=== PATIENT | female | born 1940 | race Two or more races ===

== ENCOUNTER 2017-08-05 06:27 | Day surgery (SDC) | payer MEDICARE ==
[~2017-08-05] VITALS: Ht 170.2 cm; Wt 86.9 kg
[~2017-08-05 06:27] MED LIST: ACET325 PO; ALBU90OI6; ALBU90OI6 INH; ALBU90OI61 INH; ALLERCLEAR10 MG PO; ALLERGY10 MG PO; ASPI325; ASPI81CH PO; ATOR20; Aspir 8181 MG PO; BCOIRO; BENZ100A PO; CALCIUM 1,0001 EACH; CALCIUM 500 +1 EAC3 PO; CHOL10002 PO; CLOP75; CRANBERRY250 MG PO; CRANBERRY500 M1 PO; CYCL0.05OP; Cough Syru100 MG/5 M PO; DEXILANT PO; DEXILANT60 MG; DEXL60CA3 PO; Doxycycline Hy100 MG PO; EFFIENT PO; FISH1000; FISH1000 PO; FLUSAL1005; FLUSAL2505 IH; FLUSAL2505 INH; FLUT1DIS5 INH; GUAI600T33 PO; HYDR1TAB94 PO; HYDVAL.2TA TOP; LEVFLO500 PO; LORA10ER PO; MAGOXI400 PO; MELA3 PO; METO100ER; METO50ER PO; Melatonin5 M1 PO; NITR.4SL; NITR.4SL SL; OMEP20ER; PANT40 PO; RAMI5; SIMV10 PO; SIMV20 PO; SPIHYD; SPIR25 PO; UBID100 PO; VERA120ERB; VITAMIN D32000 UNI1; Voltaren100 GM TOP; Voltaren100 GM TP; Zofran4 MG PO; [UNRECOGNIZED DRUG - OTHER]; [UNRECOGNIZED DRUG - OTHER]
[2017-08-05] MEDS ORDERED: METF500C PO (07:29)
== END 2017-08-05 08:02 | disposition home or self-care (01) ==
LOC: ORSCSDS 06:27
PROVIDERS: Anesthesiology
PROC: 3E0R33Z Introduction of Anti-inflammatory into Spinal Canal, Percutaneous Approach (ICD-10-PCS; principal; 2017-08-05 07:45)
DX: M51.16 Intervertebral disc disorders with radiculopathy, lumbar region (principal); M48.061 Spinal stenosis, lumbar region without neurogenic claudication; I10 Essential (primary) hypertension; J45.909 Unspecified asthma, uncomplicated; E78.00 Pure hypercholesterolemia, unspecified; I25.10 Atherosclerotic heart disease of native coronary artery without angina pectoris; E11.9 Type 2 diabetes mellitus without complications; Z79.82 Long term (current) use of aspirin; Z79.84 Long term (current) use of oral hypoglycemic drugs; Z79.899 Other long term (current) drug therapy
CPT/HCPCS: J1040

== ENCOUNTER 2017-08-26 15:46 | Inpatient (IN) | payer MEDICARE ==
[~2017-08-26] VITALS: Ht 170.2 cm; Wt 87.1 kg
[~2017-08-26 15:46] MED LIST changes: +METF500C PO
[2017-08-26 16:41] LABS: BASOPHILS ABSOLUTE AUTO 0.06 K/mm3 (0.00-0.23); BASOPHILS PERCENT AUTO 0 % (0-2); EOSINOPHILS ABSOLUTE AUTO 0.04 K/mm3 (0.00-0.68); EOSINOPHILS PERCENT AUTO 0 % (0-6); Hematocrit 44.1 % (33.0-51.0); Hemoglobin 13.7 g/dL (11.5-16.0); IMMATURE GRAN ABSOLUTE AUTO 0.06 K/mm3 (0.00-0.10); IMMATURE GRAN PERCENT AUTO 0 % (0-1); LYMPHOCYTES ABSOLUTE AUTO 1.49 K/mm3 (0.84-5.20); LYMPHOCYTES PERCENT AUTO 11 % (21-46); MONOCYTES ABSOLUTE AUTO 0.91 K/mm3 (0.16-1.47); MONOCYTES PERCENT AUTO 6 % (4-13); Mean Corpuscular HGB 29.5 pg (26.0-34.0); Mean Corpuscular HGB Conc 31.1 g/dL (31.5-36.5); Mean Corpuscular Volume 95 fL (80-100); NEUTROPHILS ABSOLUTE AUTO 11.56 K/mm3 (1.96-9.15); NEUTROPHILS PERCENT AUTO 82 % (41-73); Platelet Count 173 K/mm3 (150-400); RDW Coefficient Variation 13.6 % (11.7-14.2); RDW Standard Deviation 47.8 fL (35.1-46.3); Red Blood Cell Count 4.64 M/mm3 (3.80-5.20); White Blood Cell Count 14.12 K/mm3 (4.00-11.30)
[2017-08-26 16:55] LABS: International Normalized Ratio 1.02; Prothrombin Time Results 10.6 Sec (9.7-11.5)
[2017-08-26 17:02] LABS: Alanine Aminotransfer (ALT/SGP 32 U/L (12-78); Albumin, Blood 3.1 g/dL (3.4-5.0); Albumin/Globulin Ratio 0.7 (0.8-1.8); Alk Phos 118 U/L (50-136); Anion Gap 8 mmol/L (6-16); Aspartate Aminotrans (AST/SGOT 34 U/L (12-37); Bilirubin, Total 0.5 mg/dL (0.1-1.0); Blood Urea Nitrogen 13 mg/dL (8-24); Bun/Creatinine Ratio 15.6 (12.0-20.0); CO2, Blood 28 mmol/L (21-32); Calcium, Blood 9.2 mg/dL (8.5-10.1); Chloride, Blood 102 mmol/L (98-108); Creatinine, Blood 0.84 mg/dL (0.40-1.00); Globulin, Blood 4.4 g/dL (2.2-4.0); Glomerular Filtration Rate >60 (60-); Glucose, Blood 151 mg/dL (70-99); Potassium, Blood 4.3 mmol/L (3.5-5.5); Sodium, Blood 138 mmol/L (136-145); Total Protein, Blood 7.5 g/dL (6.4-8.2); Troponin I 0.155 ng/mL (0.000-0.040)
[2017-08-26 17:30] LABS: Influenza A Negative (NEGATIVE); Influenza B Negative (NEGATIVE)
[2017-08-26 23:03] LABS: Source, Urine Catheter
[2017-08-26 23:07] LABS: Bilirubin, Urine Neg (Neg); Blood, Urine 2+ (Neg); Glucose Qualitative, Urine Neg (Neg); Ketones, Urine 4+ (Neg); Leukocyte Esterase, Urine 1+ (Neg); Nitrite, Urine Pos (Neg); Protein, Urine 2+ (Neg); Urobilinogen, Urine NORM (Normal)
[2017-08-26 23:08] LABS: Appearance, Urine Clear (Clear); Color, Urine Yellow (P-Yellow)
[2017-08-26 23:26] LABS: Bacteria Many /hpf; Red Blood Cells, Urine 0-2 /hpf (0-2); Squamous Epithelial Cells Not Seen /hpf (Few)
[2017-08-27 05:27] LABS: BASOPHILS ABSOLUTE AUTO 0.02 K/mm3 (0.00-0.23); BASOPHILS PERCENT AUTO 0 % (0-2); EOSINOPHILS PERCENT AUTO 0 % (0-6); Hematocrit 38.8 % (33.0-51.0); Hemoglobin 12.2 g/dL (11.5-16.0); IMMATURE GRAN ABSOLUTE AUTO 0.05 K/mm3 (0.00-0.10); IMMATURE GRAN PERCENT AUTO 0 % (0-1); LYMPHOCYTES ABSOLUTE AUTO 0.98 K/mm3 (0.84-5.20); LYMPHOCYTES PERCENT AUTO 7 % (21-46); MONOCYTES ABSOLUTE AUTO 0.33 K/mm3 (0.16-1.47); MONOCYTES PERCENT AUTO 3 % (4-13); Mean Corpuscular HGB 29.4 pg (26.0-34.0); Mean Corpuscular HGB Conc 31.4 g/dL (31.5-36.5); Mean Corpuscular Volume 94 fL (80-100); Mean Platelet Volume 11.9 fL (9.1-12.4); NEUTROPHILS ABSOLUTE AUTO 12.04 K/mm3 (1.96-9.15); NEUTROPHILS PERCENT AUTO 90 % (41-73); Platelet Count 164 K/mm3 (150-400); RDW Coefficient Variation 13.3 % (11.7-14.2); RDW Standard Deviation 45.8 fL (35.1-46.3); Red Blood Cell Count 4.15 M/mm3 (3.80-5.20); White Blood Cell Count 13.42 K/mm3 (4.00-11.30)
[2017-08-27 05:53] LABS: Anion Gap 8 mmol/L (6-16); Blood Urea Nitrogen 19 mg/dL (8-24); Bun/Creatinine Ratio 24.1 (12.0-20.0); CO2, Blood 26 mmol/L (21-32); Calcium, Blood 8.4 mg/dL (8.5-10.1); Chloride, Blood 106 mmol/L (98-108); Creatinine, Blood 0.79 mg/dL (0.40-1.00); Glomerular Filtration Rate >60 (60-); Glucose, Blood 215 mg/dL (70-99); Potassium, Blood 4.2 mmol/L (3.5-5.5); Sodium, Blood 140 mmol/L (136-145)
[2017-08-30 14:32] LABS: Source, Urine Voided
[2017-08-30 14:36] LABS: Bilirubin, Urine Neg (Neg); Blood, Urine Neg (Neg); Glucose Qualitative, Urine Neg (Neg); Ketones, Urine Neg (Neg); Leukocyte Esterase, Urine Neg (Neg); Nitrite, Urine Neg (Neg); Protein, Urine Neg (Neg); Specific Gravity, Urine 1.015 (1.003-1.022); Urobilinogen, Urine NORM (Normal); pH, Urine 6.5 (5.0-8.0)
[2017-08-30 14:56] LABS: Appearance, Urine Clear (Clear); Color, Urine Yellow (P-Yellow)
[2017-09-04] MEDS ORDERED: BENZ100A PO (11:27)
[2017-09-04] MEDS ORDERED: PRED20 PO (11:31)
== END 2017-09-04 12:12 | disposition home or self-care (01) | DRG 177 ==
LOC: ER 15:46 → MEDS 19:09 → ENPENDDIS 09-04 10:00 → MEDS 09-04 12:12
PROVIDERS: Emergency Medicine; Family Medicine; Internal Medicine Gastroenterology
PROC: 0DJ08ZZ Inspection of Upper Intestinal Tract, Via Natural or Artificial Opening Endoscopic (ICD-10-PCS; principal; 2017-09-03 12:00)
DX: J69.0 Pneumonitis due to inhalation of food and vomit (principal); J96.01 Acute respiratory failure with hypoxia; E11.65 Type 2 diabetes mellitus with hyperglycemia; K22.0 Achalasia of cardia; K22.5 Diverticulum of esophagus, acquired; G47.33 Obstructive sleep apnea (adult) (pediatric); I10 Essential (primary) hypertension; I25.10 Atherosclerotic heart disease of native coronary artery without angina pectoris; I25.2 Old myocardial infarction; J30.9 Allergic rhinitis, unspecified; K21.9 Gastro-esophageal reflux disease without esophagitis; K58.9 Irritable bowel syndrome, unspecified; Z79.52 Long term (current) use of systemic steroids; Z79.82 Long term (current) use of aspirin; Z99.81 Dependence on supplemental oxygen; Z79.84 Long term (current) use of oral hypoglycemic drugs
CPT/HCPCS: 36415; 71045; 71046; 74230; 80048; 80053; 81001; 81003; 82947; 83605; 84484; 85025; 85610; 85730; 87040; 87077; 87086; 87186; 87804; 92610; 92611; 93005; 93010; 94640; 94667; 94760; 96365; 96366; 99285; G8996; G8997; G8998; J0295; J0456; J2543; J7030; J7050; J7120

== ENCOUNTER 2017-09-16 15:58 | Inpatient (IN) | payer MEDICARE ==
[~2017-09-16] VITALS: Ht 170.2 cm; Wt 77.8 kg
[~2017-09-16 15:58] MED LIST changes: +PRED20 PO
[2017-09-16 16:39] LABS: BASOPHILS ABSOLUTE AUTO 0.02 K/mm3 (0.00-0.23); BASOPHILS PERCENT AUTO 0 % (0-2); EOSINOPHILS ABSOLUTE AUTO 0.22 K/mm3 (0.00-0.68); EOSINOPHILS PERCENT AUTO 2 % (0-6); Hematocrit 39.2 % (33.0-51.0); Hemoglobin 12.1 g/dL (11.5-16.0); IMMATURE GRAN ABSOLUTE AUTO 0.04 K/mm3 (0.00-0.10); IMMATURE GRAN PERCENT AUTO 0 % (0-1); LYMPHOCYTES ABSOLUTE AUTO 1.35 K/mm3 (0.84-5.20); LYMPHOCYTES PERCENT AUTO 15 % (21-46); MONOCYTES ABSOLUTE AUTO 0.56 K/mm3 (0.16-1.47); MONOCYTES PERCENT AUTO 6 % (4-13); Mean Corpuscular HGB 29.1 pg (26.0-34.0); Mean Corpuscular HGB Conc 30.9 g/dL (31.5-36.5); Mean Corpuscular Volume 94 fL (80-100); Mean Platelet Volume 11.7 fL (9.1-12.4); NEUTROPHILS ABSOLUTE AUTO 6.96 K/mm3 (1.96-9.15); NEUTROPHILS PERCENT AUTO 76 % (41-73); Platelet Count 151 K/mm3 (150-400); RDW Standard Deviation 48.6 fL (35.1-46.3); Red Blood Cell Count 4.16 M/mm3 (3.80-5.20); White Blood Cell Count 9.15 K/mm3 (4.00-11.30)
[2017-09-16 17:08] LABS: Troponin I <0.015 ng/mL (0.000-0.040)
[2017-09-16 17:13] LABS: Alanine Aminotransfer (ALT/SGP 31 U/L (12-78); Albumin, Blood 2.8 g/dL (3.4-5.0); Albumin/Globulin Ratio 0.8 (0.8-1.8); Alk Phos 81 U/L (50-136); Anion Gap 6 mmol/L (6-16); Aspartate Aminotrans (AST/SGOT 11 U/L (12-37); Bilirubin, Total 0.6 mg/dL (0.1-1.0); Blood Urea Nitrogen 23 mg/dL (8-24); Bun/Creatinine Ratio 24.3 (12.0-20.0); CO2, Blood 29 mmol/L (21-32); Calcium, Blood 9.1 mg/dL (8.5-10.1); Chloride, Blood 105 mmol/L (98-108); Creatinine, Blood 0.95 mg/dL (0.40-1.00); Globulin, Blood 3.5 g/dL (2.2-4.0); Glomerular Filtration Rate >60 (60-); Glucose, Blood 207 mg/dL (70-99); Magnesium, Blood 1.9 mg/dL (1.6-2.4); Potassium, Blood 4.1 mmol/L (3.5-5.5); Sodium, Blood 140 mmol/L (136-145); Total Protein, Blood 6.3 g/dL (6.4-8.2)
[2017-09-16] MEDS ORDERED: DEXL60CA3 (18:08)
[2017-09-16] MEDS ORDERED: MELATONIN5 M2 PO (18:14)
[2017-09-16 20:13] LABS: Source, Urine Voided
[2017-09-16 20:16] LABS: Appearance, Urine Clear (Clear); Bilirubin, Urine Neg (Neg); Blood, Urine 2+ (Neg); Color, Urine Yellow (P-Yellow); Glucose Qualitative, Urine Neg (Neg); Ketones, Urine 2+ (Neg); Leukocyte Esterase, Urine 1+ (Neg); Nitrite, Urine Neg (Neg); Protein, Urine 1+ (Neg); Urobilinogen, Urine NORM (Normal)
[2017-09-16 20:24] LABS: Bacteria Many /hpf; Red Blood Cells, Urine 0-2 /hpf (0-2); Squamous Epithelial Cells Rare /hpf (Few)
[2017-09-18 05:21] LABS: Anion Gap 8 mmol/L (6-16); Blood Urea Nitrogen 15 mg/dL (8-24); CO2, Blood 26 mmol/L (21-32); Chloride, Blood 107 mmol/L (98-108); Creatinine, Blood 0.79 mg/dL (0.40-1.00); Glomerular Filtration Rate >60 (60-); Glucose, Blood 253 mg/dL (70-99); Phosphorus, Blood 2.6 mg/dL (2.5-4.9); Potassium, Blood 4.3 mmol/L (3.5-5.5); Sodium, Blood 141 mmol/L (136-145); Triglycerides 200 mg/dL (30-160)
[2017-09-19 09:17] LABS: Triglycerides 320 mg/dL (30-160)
[2017-09-19 15:32] LABS: Source, Urine Voided
[2017-09-19 15:38] LABS: Appearance, Urine Clear (Clear); Bilirubin, Urine Neg (Neg); Blood, Urine Neg (Neg); Color, Urine Yellow (P-Yellow); Glucose Qualitative, Urine 2+ (Neg); Ketones, Urine Neg (Neg); Leukocyte Esterase, Urine Neg (Neg); Nitrite, Urine Neg (Neg); Protein, Urine Neg (Neg); Urobilinogen, Urine NORM (Normal); pH, Urine 6.5 (5.0-8.0)
[2017-09-20 04:49] LABS: Anion Gap 7 mmol/L (6-16); Blood Urea Nitrogen 19 mg/dL (8-24); CO2, Blood 27 mmol/L (21-32); Calcium, Blood 9.3 mg/dL (8.5-10.1); Chloride, Blood 106 mmol/L (98-108); Creatinine, Blood 0.79 mg/dL (0.40-1.00); Glomerular Filtration Rate >60 (60-); Glucose, Blood 210 mg/dL (70-99); Potassium, Blood 4.3 mmol/L (3.5-5.5); Sodium, Blood 140 mmol/L (136-145)
== END 2017-09-20 11:55 | disposition home or self-care (01) | DRG 690 ==
LOC: ER 15:58 → MEDS 15:59 → ENPENDDIS 09-20 10:40 → MEDS 09-20 11:55
PROVIDERS: Family Medicine; Physician Assistant
DX: N39.0 Urinary tract infection, site not specified (principal); E86.0 Dehydration; J44.9 Chronic obstructive pulmonary disease, unspecified; K22.5 Diverticulum of esophagus, acquired; I10 Essential (primary) hypertension; I25.10 Atherosclerotic heart disease of native coronary artery without angina pectoris; I25.2 Old myocardial infarction; K58.9 Irritable bowel syndrome, unspecified; K21.9 Gastro-esophageal reflux disease without esophagitis; E78.5 Hyperlipidemia, unspecified; R73.9 Hyperglycemia, unspecified
CPT/HCPCS: 36415; 71046; 80048; 80053; 81001; 81003; 82947; 83735; 83880; 84100; 84443; 84478; 84484; 85025; 87077; 87086; 87186; 93005; 93010; 94640; 94760; 96360; 96361; 97110; 97116; 97162; 97530; 99285; G0378; G8978; G8979; J1815; J1956; J7030

== ENCOUNTER 2018-07-09 06:37 | Emergency (ER) | payer MEDICARE ==
[~2018-07-09] VITALS: Ht 170.2 cm; Wt 85.7 kg
[~2018-07-09 06:37] MED LIST changes: +DEXL60CA3; +MELATONIN5 M2 PO
[2018-07-09] MEDS ORDERED: HYDR1TAB94 (07:11)
[2018-07-09] MEDS ORDERED: BASAGLAR K100 UNIT/1 (07:11)
[2018-07-09 07:40] LABS: Source, Urine Clean Catch
[2018-07-09 07:45] LABS: Bilirubin, Urine Neg (Neg); Blood, Urine 1+ (Neg); Glucose Qualitative, Urine Neg (Neg); Ketones, Urine Neg (Neg); Leukocyte Esterase, Urine 1+ (Neg); Nitrite, Urine Neg (Neg); Protein, Urine Neg (Neg); Urobilinogen, Urine NORM (Normal); pH, Urine 6.5 (5.0-8.0)
[2018-07-09 08:03] LABS: Appearance, Urine Clear (Clear); Color, Urine Yellow (P-Yellow)
[2018-07-09 08:04] LABS: Alanine Aminotransfer (ALT/SGP 23 U/L (12-78); Albumin/Globulin Ratio 0.8 (0.8-1.8); Alk Phos 103 U/L (50-136); Anion Gap 5 mmol/L (6-16); Aspartate Aminotrans (AST/SGOT 20 U/L (12-37); Bilirubin, Total 0.2 mg/dL (0.1-1.0); Blood Urea Nitrogen 21 mg/dL (8-24); CO2, Blood 29 mmol/L (21-32); Calcium, Blood 9.3 mg/dL (8.5-10.1); Chloride, Blood 110 mmol/L (98-108); Creatinine, Blood 0.95 mg/dL (0.40-1.00); Glomerular Filtration Rate >60 (60-); Glucose, Blood 95 mg/dL (70-99); Potassium, Blood 4.6 mmol/L (3.5-5.5); Sodium, Blood 144 mmol/L (136-145)
[2018-07-09 08:10] LABS: Bacteria Many /hpf; Red Blood Cells, Urine 0-2 /hpf (0-2); Squamous Epithelial Cells Many /hpf (Few); White Blood Cells, Urine 0-2 /hpf (0-5)
[2018-07-09 08:27] LABS: BASOPHILS ABSOLUTE AUTO 0.07 K/mm3 (0.00-0.23); BASOPHILS PERCENT AUTO 1 % (0-2); EOSINOPHILS ABSOLUTE AUTO 0.24 K/mm3 (0.00-0.68); EOSINOPHILS PERCENT AUTO 2 % (0-6); Hematocrit 43.6 % (33.0-51.0); Hemoglobin 13.3 g/dL (11.5-16.0); IMMATURE GRAN ABSOLUTE AUTO 0.04 K/mm3 (0.00-0.10); IMMATURE GRAN PERCENT AUTO 0 % (0-1); LYMPHOCYTES ABSOLUTE AUTO 1.69 K/mm3 (0.84-5.20); LYMPHOCYTES PERCENT AUTO 15 % (21-46); MONOCYTES ABSOLUTE AUTO 0.92 K/mm3 (0.16-1.47); MONOCYTES PERCENT AUTO 8 % (4-13); Mean Corpuscular HGB 28.1 pg (26.0-34.0); Mean Corpuscular HGB Conc 30.5 g/dL (31.5-36.5); Mean Corpuscular Volume 92 fL (80-100); Mean Platelet Volume 11.5 fL (9.1-12.4); NEUTROPHILS PERCENT AUTO 74 % (41-73); Platelet Count 197 K/mm3 (150-400); RDW Coefficient Variation 13.9 % (11.7-14.2); RDW Standard Deviation 47.3 fL (35.1-46.3); Red Blood Cell Count 4.74 M/mm3 (3.80-5.20); White Blood Cell Count 11.36 K/mm3 (4.00-11.30)
[2018-07-09] MEDS ORDERED: HYDROCODONE-ACET5 ML PO (09:22)
[2018-07-09] MEDS ORDERED: Augmentin600 MG/5 M PO (09:22)
== END 2018-07-09 09:35 | disposition home or self-care (01) ==
LOC: ER 06:37
PROVIDERS: Physician Assistant
DX: K57.32 Diverticulitis of large intestine without perforation or abscess without bleeding (principal); Z88.1 Allergy status to other antibiotic agents; Z79.899 Other long term (current) drug therapy; Z79.891 Long term (current) use of opiate analgesic; Z79.4 Long term (current) use of insulin; I10 Essential (primary) hypertension; J45.909 Unspecified asthma, uncomplicated; E11.9 Type 2 diabetes mellitus without complications; E78.5 Hyperlipidemia, unspecified; Z90.49 Acquired absence of other specified parts of digestive tract
CPT/HCPCS: 36415; 74177; 80053; 81001; 83690; 85025; 99284-25; J7120; Q9967

== ENCOUNTER → 2018-08-11 | Outpatient (CLI) | payer MEDICARE ==
[~2018-08-11] MED LIST changes: +Augmentin600 MG/5 M PO; +BASAGLAR K100 UNIT/1; +HYDR1TAB94; +HYDROCODONE-ACET5 ML PO
[2018-08-11 18:32] LABS: Microalb/Creat Ratio UR, Rand Unable to Calculate mg/g (0.000-30.000); Microalbumin, Random Urine <5.000 mg/L (0.000-20.000)
== END | disposition home or self-care (01) ==
LOC: LAB 15:55 → LAB SHORT 15:55 → LAB FUT 08-05 17:50
PROVIDERS: Family Medicine
DX: E11.9 Type 2 diabetes mellitus without complications (principal)
CPT/HCPCS: 82043; 82570

== ENCOUNTER 2018-12-28 13:40 | Emergency (ER) | payer MEDICARE ==
[~2018-12-28] VITALS: Ht 170.2 cm; Wt 86.2 kg
[2018-12-28 14:17] LABS: BASOPHILS ABSOLUTE AUTO 0.04 K/mm3 (0.00-0.23); BASOPHILS PERCENT AUTO 0 % (0-2); EOSINOPHILS ABSOLUTE AUTO 0.02 K/mm3 (0.00-0.68); EOSINOPHILS PERCENT AUTO 0 % (0-6); Hemoglobin 12.7 g/dL (11.5-16.0); IMMATURE GRAN ABSOLUTE AUTO 0.04 K/mm3 (0.00-0.10); IMMATURE GRAN PERCENT AUTO 0 % (0-1); LYMPHOCYTES ABSOLUTE AUTO 1.14 K/mm3 (0.84-5.20); LYMPHOCYTES PERCENT AUTO 11 % (21-46); MONOCYTES ABSOLUTE AUTO 1.04 K/mm3 (0.16-1.47); MONOCYTES PERCENT AUTO 10 % (4-13); Mean Corpuscular HGB 28.9 pg (26.0-34.0); Mean Corpuscular HGB Conc 31.8 g/dL (31.5-36.5); Mean Corpuscular Volume 91 fL (80-100); NEUTROPHILS ABSOLUTE AUTO 8.01 K/mm3 (1.96-9.15); NEUTROPHILS PERCENT AUTO 78 % (41-73); Platelet Count 199 K/mm3 (150-400); RDW Coefficient Variation 13.4 % (11.7-14.2); RDW Standard Deviation 45.5 fL (35.1-46.3); Red Blood Cell Count 4.39 M/mm3 (3.80-5.20); White Blood Cell Count 10.29 K/mm3 (4.00-11.30)
[2018-12-28 14:40] LABS: Alanine Aminotransfer (ALT/SGP 28 U/L (12-78); Albumin/Globulin Ratio 0.7 (0.8-1.8); Alk Phos 107 U/L (50-136); Anion Gap 8 mmol/L (6-16); Aspartate Aminotrans (AST/SGOT 29 U/L (12-37); Bilirubin, Total 0.3 mg/dL (0.1-1.0); Blood Urea Nitrogen 17 mg/dL (8-24); Bun/Creatinine Ratio 18.3 (12.0-20.0); CO2, Blood 24 mmol/L (21-32); Calcium, Blood 9.1 mg/dL (8.5-10.1); Chloride, Blood 104 mmol/L (98-108); Creatinine, Blood 0.93 mg/dL (0.40-1.00); Globulin, Blood 4.2 g/dL (2.2-4.0); Glomerular Filtration Rate >60 (60-); Glucose, Blood 225 mg/dL (70-99); Potassium, Blood 3.8 mmol/L (3.5-5.5); Sodium, Blood 136 mmol/L (136-145); Total Protein, Blood 7.2 g/dL (6.4-8.2); Troponin I <0.015 ng/mL (0.000-0.040)
[2018-12-28] MEDS ORDERED: Zithromax200 MG/5 M PO (16:22)
== END 2018-12-28 17:08 | disposition home or self-care (01) ==
LOC: ER 13:40
PROVIDERS: Physician Assistant
DX: J18.9 Pneumonia, unspecified organism (principal); I25.10 Atherosclerotic heart disease of native coronary artery without angina pectoris; I10 Essential (primary) hypertension; E11.9 Type 2 diabetes mellitus without complications; E78.5 Hyperlipidemia, unspecified; Z88.1 Allergy status to other antibiotic agents; Z79.82 Long term (current) use of aspirin; Z79.899 Other long term (current) drug therapy
CPT/HCPCS: 36415; 71046; 80053; 83880; 84484; 85025; 93005; 93010; 96365; 99283-25; J0696

== ENCOUNTER 2018-12-30 15:20 | Emergency (ER) | payer MEDICARE ==
[~2018-12-30] VITALS: Ht 170.2 cm; Wt 86.2 kg
[~2018-12-30 15:20] MED LIST changes: +Zithromax200 MG/5 M PO
[2018-12-30 16:36] LABS: BASOPHILS ABSOLUTE AUTO 0.02 K/mm3 (0.00-0.23); BASOPHILS PERCENT AUTO 0 % (0-2); EOSINOPHILS ABSOLUTE AUTO 0.13 K/mm3 (0.00-0.68); EOSINOPHILS PERCENT AUTO 2 % (0-6); Hematocrit 40.3 % (33.0-51.0); Hemoglobin 12.5 g/dL (11.5-16.0); IMMATURE GRAN ABSOLUTE AUTO 0.03 K/mm3 (0.00-0.10); IMMATURE GRAN PERCENT AUTO 0 % (0-1); LYMPHOCYTES ABSOLUTE AUTO 1.44 K/mm3 (0.84-5.20); LYMPHOCYTES PERCENT AUTO 19 % (21-46); MONOCYTES ABSOLUTE AUTO 0.69 K/mm3 (0.16-1.47); MONOCYTES PERCENT AUTO 9 % (4-13); Mean Corpuscular HGB 28.7 pg (26.0-34.0); Mean Corpuscular Volume 93 fL (80-100); Mean Platelet Volume 11.1 fL (9.1-12.4); NEUTROPHILS ABSOLUTE AUTO 5.23 K/mm3 (1.96-9.15); NEUTROPHILS PERCENT AUTO 69 % (41-73); Platelet Count 237 K/mm3 (150-400); RDW Coefficient Variation 13.2 % (11.7-14.2); RDW Standard Deviation 45.1 fL (35.1-46.3); Red Blood Cell Count 4.35 M/mm3 (3.80-5.20); White Blood Cell Count 7.54 K/mm3 (4.00-11.30)
[2018-12-30 16:57] LABS: Alanine Aminotransfer (ALT/SGP 26 U/L (12-78); Albumin, Blood 2.8 g/dL (3.4-5.0); Albumin/Globulin Ratio 0.6 (0.8-1.8); Alk Phos 96 U/L (50-136); Anion Gap 7 mmol/L (6-16); Aspartate Aminotrans (AST/SGOT 23 U/L (12-37); Bilirubin, Total 0.3 mg/dL (0.1-1.0); Blood Urea Nitrogen 18 mg/dL (8-24); Bun/Creatinine Ratio 20.2 (12.0-20.0); CO2, Blood 28 mmol/L (21-32); Calcium, Blood 9.2 mg/dL (8.5-10.1); Chloride, Blood 105 mmol/L (98-108); Creatinine, Blood 0.89 mg/dL (0.40-1.00); Globulin, Blood 4.4 g/dL (2.2-4.0); Glomerular Filtration Rate >60 (60-); Glucose, Blood 105 mg/dL (70-99); Sodium, Blood 140 mmol/L (136-145); Total Protein, Blood 7.2 g/dL (6.4-8.2); Troponin I <0.015 ng/mL (0.000-0.040)
[2018-12-30] MEDS ORDERED: Augmentin600 MG/5 M PO (17:46)
== END 2018-12-30 18:26 | disposition home or self-care (01) ==
LOC: ER 15:20
PROVIDERS: Emergency Medicine
DX: J15.9 Unspecified bacterial pneumonia (principal); I25.2 Old myocardial infarction; Z79.82 Long term (current) use of aspirin; Z79.899 Other long term (current) drug therapy
CPT/HCPCS: 36415; 71046; 80053; 83880; 84484; 85025; 93005; 93010; 99285-25

== ENCOUNTER 2019-06-18 16:12 | Inpatient (IN) | payer MEDICARE ==
[~2019-06-18] VITALS: Ht 170.2 cm; Wt 94.0 kg
[~2019-06-18 16:12] MED LIST changes: -Aspir 8181 MG PO; +Aspir 8181 MG PT; -DEXL60CA3; +DEXL60CA3 PT; +MELATONIN5 M1 PT; -MELATONIN5 M2 PO; +METO25 PO; -SIMV10 PO; +SIMV10 PT
[2019-06-18] MEDS ORDERED: FLUT1DIS5 INH ×2 (16:28→21:25)
[2019-06-18] MEDS ORDERED: Lomotil Tablet1 EACH PO (16:30)
[2019-06-18] MEDS ORDERED: BASAGLAR K100 UNIT/2 SC (16:30)
[2019-06-18 17:09] LABS: Albumin, Blood 2.8 g/dL (3.4-5.0); Albumin/Globulin Ratio 0.8 (0.8-1.8); Bilirubin, Total 0.7 mg/dL (0.1-1.0); Bun/Creatinine Ratio 13.3 (12.0-20.0); Calcium, Blood 9.1 mg/dL (8.5-10.1); Creatinine, Blood 1.5 mg/dL (0.40-1.00); Globulin, Blood 3.6 g/dL (2.2-4.0); Potassium, Blood 4.4 mmol/L (3.5-5.5); Total Protein, Blood 6.4 g/dL (6.4-8.2); Troponin I 0.401 ng/mL (0.000-0.040)
[2019-06-18 17:49] LABS: PCO2 Arterial 32.6 mmHg (35-45); PO2 Arterial 58.9 mmHg (80-100); pH Blood Arterial 7.44 (7.35-7.45)
[2019-06-18 18:03] LABS: Hematocrit 47.4 % (33.0-51.0); Mean Corpuscular HGB 29.2 pg (26.0-34.0); Mean Corpuscular HGB Conc 31.6 g/dL (31.5-36.5); Mean Corpuscular Volume 92 fL (80-100); Mean Platelet Volume 11.8 fL (9.1-12.4); Platelet Count 236 K/mm3 (150-400); RDW Coefficient Variation 13.6 % (11.7-14.2); RDW Standard Deviation 46.4 fL (35.1-46.3); Red Blood Cell Count 5.14 M/mm3 (3.80-5.20); White Blood Cell Count 11.64 K/mm3 (4.00-11.30)
[2019-06-18 18:20] LABS: BAND PERCENT MAN 46 % (0-8); BASOPHILS PERCENT MAN 0 % (0-2); EOSINOPHILS PERCENT MAN 0 % (0-6); LYMPHOCYTES % ATYPICAL MANUAL 4 % (0-0); LYMPHOCYTES ABSOLUTE MAN 1.86 K/mm3 (0.84-5.20); LYMPHOCYTES PERCENT MAN 12 % (21-46); METAMYELOCYTE ABSOLUTE MAN 1.04 K/mm3 (0.00-0.00); METAMYELOCYTE PERCENT MAN 9 % (0-0); MONOCYTES ABSOLUTE MAN 0.58 K/mm3 (0.16-1.47); MONOCYTES PERCENT MAN 5 % (4-13); NEUTROPHILS ABSOLUTE MAN 8.14 K/mm3 (1.96-9.15); SEG NEUTROPHILS PERCENT MAN 24 % (41-73); TOTAL CELLS COUNTED 100
[2019-06-18] MEDS ORDERED: Loratadine10 MG PT (18:37)
[2019-06-18] MEDS ORDERED: SPIRIVA RESPIMAT4 GM INH (18:38)
--- NOTE | 2019-06-19 04:51 | NUR ---
Admit/Shift Summary: Patient arrived to the [facility] at 205406/18/19. She has a productive cough, but sputum sample was contaminated with oral epithelial cells, and sputum appeared white. Crackles heard on auscultation to right lower and mid lung feilds. She denies chest pain, and we are monitoring troponins. Cough and deep breathing encouraged. VSS, slightly hypotensive so metoprolol was held. Re-ordered sputum collection.
[2019-06-19 05:49] LABS: Hematocrit 40.7 % (33.0-51.0); Hemoglobin 12.8 g/dL (11.5-16.0); Mean Corpuscular HGB 28.6 pg (26.0-34.0); Mean Corpuscular HGB Conc 31.4 g/dL (31.5-36.5); Mean Corpuscular Volume 91 fL (80-100); Mean Platelet Volume 12.4 fL (9.1-12.4); Platelet Count 200 K/mm3 (150-400); RDW Coefficient Variation 13.8 % (11.7-14.2); RDW Standard Deviation 46.5 fL (35.1-46.3); Red Blood Cell Count 4.47 M/mm3 (3.80-5.20)
[2019-06-19 06:02] LABS: Bun/Creatinine Ratio 18.7 (12.0-20.0); Calcium, Blood 8.3 mg/dL (8.5-10.1); Creatinine, Blood 1.5 mg/dL (0.40-1.00); Potassium, Blood 4.4 mmol/L (3.5-5.5)
[2019-06-19 06:08] LABS: Troponin I 1.23 ng/mL (0.000-0.040)
[2019-06-19 06:21] LABS: BAND PERCENT MAN 39 % (0-8); BASOPHILS ABSOLUTE MAN 0.16 K/mm3 (0.00-0.23); BASOPHILS PERCENT MAN 1 % (0-2); EOSINOPHILS PERCENT MAN 0 % (0-6); LYMPHOCYTES % ATYPICAL MANUAL 2 % (0-0); LYMPHOCYTES ABSOLUTE MAN 2.28 K/mm3 (0.84-5.20); LYMPHOCYTES PERCENT MAN 12 % (21-46); MONOCYTES ABSOLUTE MAN 0.65 K/mm3 (0.16-1.47); MONOCYTES PERCENT MAN 4 % (4-13); SEG NEUTROPHILS PERCENT MAN 42 % (41-73); TOTAL CELLS COUNTED 100
--- NOTE | 2019-06-19 09:41 | NUR ---
eCHOCARDIOGRAM COMPLETED.
--- NOTE | 2019-06-19 12:38 | NUR ---
TRANSFER: PT TO ROOM 361 AT THIS TIME. ASSUMED CARE AT THIS TIME. PT UP TO CHAIR TO EAT LUNCH. PT ON 2L O2. SOB WITH ACTIVITY. DENIES NEEDS. WILL CONT TO MONITOR AND TREAT.
--- NOTE | 2019-06-19 13:12 | NUR ---
SPEECH THERAPY: ST IN TO SEE PATIENT FOR SWALLOW EVAL. NEW ORDERS NOTED. PLAN FOR BARIUM SWALLOW IN AM.
[2019-06-19 14:15] LABS: Source, Urine Clean Catch
[2019-06-19 14:21] LABS: Bilirubin, Urine Neg (Neg); Blood, Urine 1+ (Neg); Glucose Qualitative, Urine Neg (Neg); Ketones, Urine 1+ (Neg); Leukocyte Esterase, Urine 1+ (Neg); Nitrite, Urine Neg (Neg); Protein, Urine 2+ (Neg); Urobilinogen, Urine NORM (Normal)
[2019-06-19 14:28] LABS: Appearance, Urine Clear (Clear); Color, Urine Yellow (P-Yellow)
[2019-06-19 14:29] LABS: Bacteria Mod /hpf; Squamous Epithelial Cells Few /hpf (Few)
--- NOTE | 2019-06-19 17:43 | NUR ---
PT HAS BEEN STABLE THIS SHIFT. PT TROPONINS TRENDING DOWN. REMAINS SR ON TELE. NO COMPLAINTS OF CP. UA AND SPUTUM CULTURES PENDING. CONT IV ABX. CONT IV FLUIDS ORDERED. PT ON NECTAR THISCK LIQUIDS, PUREE DIET. BLOOD SUGARS NOT NEEDING COVERAGE. BARIUM SWALLOW AND EKG SCHEDULED FOR AM. PT MIN ASSIST TO BATHROOM. REMAINS ON 3L O2. SOB WITH ACTIVITY. OCCASIONAL COUGH. USES CALL LIGHT APPROPRIATELY NEEDED.
--- NOTE | 2019-06-20 04:13 | NUR ---
SHIFT SUMMARY- NO ACUTE CHANGES OVERNIGHT. PT. HAS DENIED ANY C/O PAIN OR DISCOMFORT. PT. HAS OCCASIONAL PRODUCTIVE COUGH, MEDICATED WITH ROBITUSSIN PER PT. REQUEST. SLEPT WELL DURING THE NIGHT, NO APPARENT DISTRESS NOTED. PT. SCHEDULED FOR BARIUM SWALLOW THIS AM. IV FLUIDS RUNNING. CALL LIGHT WITHIN REACH AND SIDE RAILS UP X2. WILL CONT TO MONITOR.
[2019-06-20 05:01] LABS: Mean Corpuscular HGB 29.3 pg (26.0-34.0); Mean Corpuscular HGB Conc 31.4 g/dL (31.5-36.5); Mean Corpuscular Volume 93 fL (80-100); Mean Platelet Volume 11.9 fL (9.1-12.4); Platelet Count 155 K/mm3 (150-400); RDW Standard Deviation 47.7 fL (35.1-46.3); Red Blood Cell Count 3.75 M/mm3 (3.80-5.20); White Blood Cell Count 12.49 K/mm3 (4.00-11.30)
[2019-06-20 05:20] LABS: Bun/Creatinine Ratio 19.3 (12.0-20.0); Calcium, Blood 8.8 mg/dL (8.5-10.1); Creatinine, Blood 1.14 mg/dL (0.40-1.00); Magnesium, Blood 1.7 mg/dL (1.6-2.4); Potassium, Blood 3.7 mmol/L (3.5-5.5)
--- NOTE | 2019-06-20 16:30 | NUR ---
LOW CBG PT WITH CBG OF 58 AND SHE IS STRICT NPO. T/C TO DR DORADO, IVF CHANGE FROM NS TO D5 1/2 NS AT 75. WILL MONITOR
--- NOTE | 2019-06-20 18:15 | NUR ---
PT IV LEAKING AND REMOVED. CBG RECHECKED, RESULT OF 49, PT ASYMPTOMATIC. NEW IV ATTEMPTED BY JORGE NORMAN AND RICH NORMAN. SUCCESSFUL IV TO LFA BY LAVERNE NORMAN. 1/2 AMP D50 IV PUSH GIVEN PER ORDERS. IVF RESTARTED, DR DORADO NOTIFIED, NO NEW ORDERS AT THIS TIME
--- NOTE | 2019-06-20 18:53 | NUR ---
PT NO STRICT NPO, FAILED SWALLOW EVAL, PEG TUBE RECOMMENDED, SHE DID SAY THAT SHE WANTS DR WONG SHE IS FAMILIAR WITH HIM. CLOSE MONITORING OF BLOOD SUGAR IS NEEDED WITH NPO STATUS, D5 1/2 NS AT 75 RUNNING, WILL CONTINUE TO MONITOR AND REPORT TO ONCOMING RN
--- NOTE | 2019-06-21 04:15 | NUR ---
SHIFT SUMMARY- PT. HAD A RESTFUL NIGHT. NO APPARENT DISTRESS NOTED. PT. NPO DUE TO FAILED SWALLOW EVAL. BS 84 LAST NIGHT, D5-1/2NS INFUSING PER ORDER. PT. DENIED ANY NEEDS T/O THE NIGHT. O2 IN PLACE AT 2L. PT. IS A SBA W/WALKER TO THE BATHROOM, CALLS APPROPRIATELY. PLAN FOR POSS PEG TUBE PLACEMENT. NO ACUTE CHANGES TO PT. CONDITION. CALL LIGHT WITHIN REACH, SIDE RAILS UP X2, AND BED IN LOW POSITION. WILL CONT TO MONITOR.
[2019-06-21 04:47] LABS: BASOPHILS ABSOLUTE AUTO 0.05 K/mm3 (0.00-0.23); BASOPHILS PERCENT AUTO 1 % (0-2); EOSINOPHILS ABSOLUTE AUTO 0.38 K/mm3 (0.00-0.68); EOSINOPHILS PERCENT AUTO 4 % (0-6); Hematocrit 34.8 % (33.0-51.0); Hemoglobin 10.8 g/dL (11.5-16.0); IMMATURE GRAN ABSOLUTE AUTO 0.08 K/mm3 (0.00-0.10); IMMATURE GRAN PERCENT AUTO 1 % (0-1); LYMPHOCYTES ABSOLUTE AUTO 1.34 K/mm3 (0.84-5.20); LYMPHOCYTES PERCENT AUTO 14 % (21-46); MONOCYTES ABSOLUTE AUTO 0.49 K/mm3 (0.16-1.47); MONOCYTES PERCENT AUTO 5 % (4-13); Mean Corpuscular HGB 29.3 pg (26.0-34.0); Mean Corpuscular Volume 95 fL (80-100); Mean Platelet Volume 11.2 fL (9.1-12.4); NEUTROPHILS ABSOLUTE AUTO 7.39 K/mm3 (1.96-9.15); NEUTROPHILS PERCENT AUTO 76 % (41-73); Platelet Count 166 K/mm3 (150-400); RDW Standard Deviation 48.6 fL (35.1-46.3); Red Blood Cell Count 3.68 M/mm3 (3.80-5.20); White Blood Cell Count 9.73 K/mm3 (4.00-11.30)
[2019-06-21 05:08] LABS: Alanine Aminotransfer (ALT/SGP 20 U/L (12-78); Albumin, Blood 2.3 g/dL (3.4-5.0); Albumin/Globulin Ratio 0.6 (0.8-1.8); Alk Phos 77 U/L (50-136); Anion Gap 4 mmol/L (6-16); Aspartate Aminotrans (AST/SGOT 17 U/L (12-37); Bilirubin, Total 0.4 mg/dL (0.1-1.0); Blood Urea Nitrogen 13 mg/dL (8-24); Bun/Creatinine Ratio 13.8 (12.0-20.0); CO2, Blood 25 mmol/L (21-32); Calcium, Blood 8.7 mg/dL (8.5-10.1); Chloride, Blood 112 mmol/L (98-108); Creatinine, Blood 0.95 mg/dL (0.40-1.00); Globulin, Blood 3.6 g/dL (2.2-4.0); Glomerular Filtration Rate >60 (60-); Glucose, Blood 92 mg/dL (70-99); Potassium, Blood 3.6 mmol/L (3.5-5.5); Sodium, Blood 141 mmol/L (136-145); Total Protein, Blood 5.9 g/dL (6.4-8.2)
[2019-06-21 10:56] LABS: Percent Saturation 14.9 % (15.0-50.0)
--- NOTE | 2019-06-21 10:59 | NUR ---
CALL FROM LAB AT 1039 PT'S URINE IN POSITIVE OF ESBL. PT PUT ON CONTACT PRECAUTIONS.
--- NOTE | 2019-06-21 11:17 | NUR ---
DR LASSITER WAS CONSULTED TO DAY ON PT. DR SRAVANI IRAHETA RETURNED CALL AT 1118. STATED HE DOES NOT DO PEG TUBES, BUT WOULD CONSULT GENERAL SURGERY ON THIS MATTER.
--- NOTE | 2019-06-21 17:52 | NUR ---
PT AOX4 AND COOPERATIVE OF CARE. PT IS A ONE PERSON ASSIST WITH WALKER TO HELP WITH HER POLE. PT CALLS APPROPRIATELY. DENIES PAIN AT THIS TIME. STILL NO NEW ON WHEN PEG TUBE CAN BE PLACED.
--- NOTE | 2019-06-21 19:30 | NUR ---
ASSUMED CARE OF THE PATIENT. PATIENT SITTING UP IN CHAIR, WATCHING TV. DENIES ANY NEEDS AT THIS TIME. ENCOURAGED TO ELEVATE FEET DUE TO EDEMA STATES SHE CAN NOT FIND A COMFORTABLE POSITION SO SHE IS SITTING UP. WILL BE LAYING DOWN WHEN SHE IS READY FOR BED. ASSESSMENT COMPLETED PLEASE SEE CHART. CALL LIGHT IN REACH.
[2019-06-22 04:51] LABS: BASOPHILS ABSOLUTE AUTO 0.05 K/mm3 (0.00-0.23); BASOPHILS PERCENT AUTO 1 % (0-2); EOSINOPHILS ABSOLUTE AUTO 0.33 K/mm3 (0.00-0.68); EOSINOPHILS PERCENT AUTO 4 % (0-6); Hematocrit 35.3 % (33.0-51.0); Hemoglobin 10.8 g/dL (11.5-16.0); IMMATURE GRAN ABSOLUTE AUTO 0.04 K/mm3 (0.00-0.10); IMMATURE GRAN PERCENT AUTO 1 % (0-1); LYMPHOCYTES ABSOLUTE AUTO 1.47 K/mm3 (0.84-5.20); LYMPHOCYTES PERCENT AUTO 19 % (21-46); MONOCYTES ABSOLUTE AUTO 0.64 K/mm3 (0.16-1.47); MONOCYTES PERCENT AUTO 8 % (4-13); Mean Corpuscular HGB 28.5 pg (26.0-34.0); Mean Corpuscular HGB Conc 30.6 g/dL (31.5-36.5); Mean Corpuscular Volume 93 fL (80-100); NEUTROPHILS ABSOLUTE AUTO 5.23 K/mm3 (1.96-9.15); NEUTROPHILS PERCENT AUTO 68 % (41-73); Platelet Count 197 K/mm3 (150-400); RDW Coefficient Variation 13.8 % (11.7-14.2); RDW Standard Deviation 46.9 fL (35.1-46.3); Red Blood Cell Count 3.79 M/mm3 (3.80-5.20); White Blood Cell Count 7.76 K/mm3 (4.00-11.30)
--- NOTE | 2019-06-22 05:13 | NUR ---
SHIFT SUMMARY: 79 Y/O FEMALE ADMITTED FOR ACUTE HYPOXEMIA R/T ASPIRATION PNEUMONIA. VS AND BLOOD SUGARS HAVE REMAINED WNL. TELE REMAINED IN SINUS RHYTHEM. IV IN LEFT FA INFILTRATED, NEW ONE STARTED IN THE RIGHT HAND 22G. IV FLUIDS CONTINUE TO INFUSE WITH PROBLEMS. STILL WITH PRODUCTIVE COUGH, SATS REMAINED IN 90'S ON 2 LITERS. NO OTHER ACUTE CHANGES TO REPORT. WILL REPORT OFF TO DAY SHIFT.
[2019-06-22 05:14] LABS: Alanine Aminotransfer (ALT/SGP 19 U/L (12-78); Albumin, Blood 2.2 g/dL (3.4-5.0); Albumin/Globulin Ratio 0.6 (0.8-1.8); Alk Phos 82 U/L (50-136); Anion Gap 5 mmol/L (6-16); Aspartate Aminotrans (AST/SGOT 16 U/L (12-37); Bilirubin, Total 0.4 mg/dL (0.1-1.0); Blood Urea Nitrogen 8 mg/dL (8-24); Bun/Creatinine Ratio 9.5 (12.0-20.0); CO2, Blood 26 mmol/L (21-32); Calcium, Blood 8.7 mg/dL (8.5-10.1); Chloride, Blood 113 mmol/L (98-108); Creatinine, Blood 0.84 mg/dL (0.40-1.00); Globulin, Blood 3.7 g/dL (2.2-4.0); Glomerular Filtration Rate >60 (60-); Glucose, Blood 89 mg/dL (70-99); Potassium, Blood 3.5 mmol/L (3.5-5.5); Sodium, Blood 144 mmol/L (136-145); Total Protein, Blood 5.9 g/dL (6.4-8.2)
--- NOTE | 2019-06-22 14:04 | NUR ---
DR FREEDMAN IN TO SEE PT FOR SURG CONSULT R/T PEG PLACEMENT, PT OUT FOR PROCEDURE @ 1400.
--- NOTE | 2019-06-22 14:47 | NUR ---
"DAY SURGERY RN | TO ENDO SUITE BOTH DOCTORS AND CIRCULATING RN HAVE SEEN PATIENT. REPORT TO MELLISA RN. TO ENDO SUITE."
--- NOTE | 2019-06-22 14:55 | NUR ---
06/22/19 2099 Talya Coronel MAC CASE WITH DR. ROONEY. SEE ANETHETIC RECORD FOR CARE
--- NOTE | 2019-06-22 16:33 | NUR ---
SUMMARY PT IS A/O X4, PLEASANT AFFECT. DX RLL PNEUMONIA R/T ASPIRATION. SHE IS STRICT NPO @ THIS TIME, HOLDING ALL ORAL. DR DORADO ORDER SURG CONSULT W DR FREEDMAN THIS AM FOR PEG TUBE PLACEMENT, PT WENT OUT FOR PROCEDURE THIS AFTERNOON, BACK W PEG TUBE IN PLACE. DR FREEDMAN ORDER MAY USE PEG @ 2100. VSS. PT HAS HX "MILD" SLEEP APNEA, USES O2 @ 2L WHEN SLEEPING. SHE IS UP TO BR IND. D51/2NS INFUSING @ 75 ML/HR.
--- NOTE | 2019-06-22 22:12 | NUR ---
PATIENT COMPLAINED THAT HER COUGHING WAS CAUSING PAIN IN HER ABDOMIN AND AROUND NEW PEG TUBE SITE. SHE WAS SITTING UP IN HER CHAIR DUE TO THIS DISCOMFORT IN HOPE SHE WOUND NOT COUGH MUCH. CALLED HOSPITALIST IN REGARDS TO COUGH MEDS/PAIN MEDS. ORDER FOR FENTANYL 25MCQ X1 WAS ORDERED. ADMINISTERED THIS TO THE PATIENT. WILL MONITOR FOR SIDE EFFECTS.
--- NOTE | 2019-06-23 04:55 | NUR ---
SHIFT SUMMARY: 79 Y/O FEMALE ADMITTED WITH ASPIRATION PNEUMONIA. RECEIVED A PEG TUBE YESTERDAY. THIS HAS NOT BEEN USED THIS SHIFT AND REMAINS CLEAN DRY AND INTACT. SHE WAS HAVING INCREASE IN COUGHING WHICH INCREASED HER ABDOMINAL PAIN. MD WAS CALLED ORDER FOR 1 TIME FENTANYL WAS ORDERED. ADMINISTERED THIS AND THE PATIENT WAS ABLE TO SLEEP FOR SHORT PERIOD TONIGHT. IV FLUIDS REMAIN CONTINUIOUS. VITALS HAVE REMAINED STABLE. NO OTHER CHANGES TO REPORT. CALL LIGHT HAS REMAINED IN REACH AND USED APPROPRIATELY.
[2019-06-23 05:05] LABS: BASOPHILS ABSOLUTE AUTO 0.03 K/mm3 (0.00-0.23); BASOPHILS PERCENT AUTO 0 % (0-2); EOSINOPHILS ABSOLUTE AUTO 0.25 K/mm3 (0.00-0.68); EOSINOPHILS PERCENT AUTO 3 % (0-6); Hematocrit 37.1 % (33.0-51.0); Hemoglobin 11.4 g/dL (11.5-16.0); IMMATURE GRAN ABSOLUTE AUTO 0.05 K/mm3 (0.00-0.10); IMMATURE GRAN PERCENT AUTO 1 % (0-1); LYMPHOCYTES ABSOLUTE AUTO 1.43 K/mm3 (0.84-5.20); LYMPHOCYTES PERCENT AUTO 19 % (21-46); MONOCYTES ABSOLUTE AUTO 0.71 K/mm3 (0.16-1.47); MONOCYTES PERCENT AUTO 10 % (4-13); Mean Corpuscular HGB 29.2 pg (26.0-34.0); Mean Corpuscular HGB Conc 30.7 g/dL (31.5-36.5); Mean Corpuscular Volume 95 fL (80-100); Mean Platelet Volume 10.7 fL (9.1-12.4); NEUTROPHILS ABSOLUTE AUTO 5.03 K/mm3 (1.96-9.15); NEUTROPHILS PERCENT AUTO 67 % (41-73); Platelet Count 207 K/mm3 (150-400); RDW Coefficient Variation 13.4 % (11.7-14.2); RDW Standard Deviation 46.9 fL (35.1-46.3); Red Blood Cell Count 3.91 M/mm3 (3.80-5.20)
[2019-06-23 05:24] LABS: Alanine Aminotransfer (ALT/SGP 17 U/L (12-78); Albumin, Blood 2.3 g/dL (3.4-5.0); Albumin/Globulin Ratio 0.6 (0.8-1.8); Alk Phos 84 U/L (50-136); Anion Gap 5 mmol/L (6-16); Aspartate Aminotrans (AST/SGOT 16 U/L (12-37); Bilirubin, Total 0.3 mg/dL (0.1-1.0); Blood Urea Nitrogen 5 mg/dL (8-24); CO2, Blood 27 mmol/L (21-32); Chloride, Blood 111 mmol/L (98-108); Creatinine, Blood 0.71 mg/dL (0.40-1.00); Globulin, Blood 3.8 g/dL (2.2-4.0); Glomerular Filtration Rate >60 (60-); Glucose, Blood 122 mg/dL (70-99); Potassium, Blood 3.5 mmol/L (3.5-5.5); Sodium, Blood 143 mmol/L (136-145); Total Protein, Blood 6.1 g/dL (6.4-8.2)
--- NOTE | 2019-06-23 17:01 | NUR ---
SUMMARY PT IS A/O X4, PLEASANT AFFECT. SBA TO BR W FWW. SHE STATE CONTINUING DISCOMFORT D/T COUGH, DR DORADO ORDER COUGH MEDS VIA PEG TUBE, GIVEN THIS AFTERNOON. PETROLEUM ENGINEERING TEACHER PLACE ORDERS FOR TUBE FEEDING, STARTED @ 1200, RATE 25 ML/HR W 30 ML WATER FLUSH Q4. RATE TO BE INCREASED TO GOAL 50 ML/HR @ 2000. PT STARTED ON BP MED VIA TUBE THIS AM, SBP 150'S. IV SITE SL THIS AFTERNOON.
[2019-06-24 05:17] LABS: BASOPHILS ABSOLUTE AUTO 0.04 K/mm3 (0.00-0.23); BASOPHILS PERCENT AUTO 1 % (0-2); EOSINOPHILS ABSOLUTE AUTO 0.25 K/mm3 (0.00-0.68); EOSINOPHILS PERCENT AUTO 3 % (0-6); Hematocrit 38.8 % (33.0-51.0); Hemoglobin 11.8 g/dL (11.5-16.0); IMMATURE GRAN ABSOLUTE AUTO 0.06 K/mm3 (0.00-0.10); IMMATURE GRAN PERCENT AUTO 1 % (0-1); LYMPHOCYTES ABSOLUTE AUTO 1.96 K/mm3 (0.84-5.20); LYMPHOCYTES PERCENT AUTO 24 % (21-46); MONOCYTES ABSOLUTE AUTO 0.88 K/mm3 (0.16-1.47); MONOCYTES PERCENT AUTO 11 % (4-13); Mean Corpuscular HGB Conc 30.4 g/dL (31.5-36.5); Mean Corpuscular Volume 95 fL (80-100); Mean Platelet Volume 11.1 fL (9.1-12.4); NEUTROPHILS ABSOLUTE AUTO 4.92 K/mm3 (1.96-9.15); NEUTROPHILS PERCENT AUTO 61 % (41-73); Platelet Count 231 K/mm3 (150-400); RDW Coefficient Variation 13.4 % (11.7-14.2); RDW Standard Deviation 47.6 fL (35.1-46.3); Red Blood Cell Count 4.07 M/mm3 (3.80-5.20); White Blood Cell Count 8.11 K/mm3 (4.00-11.30)
--- NOTE | 2019-06-24 05:21 | NUR ---
SHIFT SUMMARY PT'S LS WERE WHEEZY T/O AND SHE HAS BEEN COUGHING QUITE A BIT. SHE HAS BEEN GIVEN COUGH MEDS X3 TONIGHT WHICH WERE ALL EFFECTIVE. MARCIA PLEASANT AND COOPERATIVE WITH NO ASE TO ANY OF THE COUGH MEDS. WILL CON'T TO MONITOR HER.
[2019-06-24 06:13] LABS: Alanine Aminotransfer (ALT/SGP 18 U/L (12-78); Albumin, Blood 2.3 g/dL (3.4-5.0); Albumin/Globulin Ratio 0.6 (0.8-1.8); Alk Phos 86 U/L (50-136); Anion Gap 9 mmol/L (6-16); Aspartate Aminotrans (AST/SGOT 21 U/L (12-37); Bilirubin, Total 0.2 mg/dL (0.1-1.0); Blood Urea Nitrogen 7 mg/dL (8-24); Bun/Creatinine Ratio 10.2 (12.0-20.0); CO2, Blood 24 mmol/L (21-32); Calcium, Blood 9.2 mg/dL (8.5-10.1); Chloride, Blood 111 mmol/L (98-108); Creatinine, Blood 0.69 mg/dL (0.40-1.00); Glomerular Filtration Rate >60 (60-); Glucose, Blood 169 mg/dL (70-99); Magnesium, Blood 1.6 mg/dL (1.6-2.4); Potassium, Blood 3.8 mmol/L (3.5-5.5); Sodium, Blood 144 mmol/L (136-145); Total Protein, Blood 6.3 g/dL (6.4-8.2)
--- NOTE | 2019-06-24 18:00 | NUR ---
NOTIFIED THE DR. OF PATIENT URINATING 1X THIS SHIFT. ALSO INFORMED THE DR. OF PATIENT TOLERATING 1 OF THE 3 TUBE FEEDINGS TODAY. SHE SAID TO CONTINUE TO CHECK RESIDUALS AND CONTINUE TO MONITOR. FLUSHED WITH 120ML FOR HYDRATION FOR PATIENT.
[2019-06-25 05:01] LABS: BASOPHILS ABSOLUTE AUTO 0.04 K/mm3 (0.00-0.23); BASOPHILS PERCENT AUTO 1 % (0-2); EOSINOPHILS ABSOLUTE AUTO 0.27 K/mm3 (0.00-0.68); EOSINOPHILS PERCENT AUTO 4 % (0-6); Hematocrit 36.3 % (33.0-51.0); Hemoglobin 10.9 g/dL (11.5-16.0); IMMATURE GRAN ABSOLUTE AUTO 0.07 K/mm3 (0.00-0.10); IMMATURE GRAN PERCENT AUTO 1 % (0-1); LYMPHOCYTES ABSOLUTE AUTO 1.78 K/mm3 (0.84-5.20); LYMPHOCYTES PERCENT AUTO 24 % (21-46); MONOCYTES PERCENT AUTO 9 % (4-13); Mean Corpuscular HGB 28.8 pg (26.0-34.0); Mean Corpuscular Volume 96 fL (80-100); Mean Platelet Volume 11.1 fL (9.1-12.4); NEUTROPHILS ABSOLUTE AUTO 4.66 K/mm3 (1.96-9.15); NEUTROPHILS PERCENT AUTO 62 % (41-73); Platelet Count 237 K/mm3 (150-400); RDW Coefficient Variation 13.5 % (11.7-14.2); RDW Standard Deviation 47.9 fL (35.1-46.3); Red Blood Cell Count 3.78 M/mm3 (3.80-5.20); White Blood Cell Count 7.52 K/mm3 (4.00-11.30)
[2019-06-25 05:43] LABS: Alanine Aminotransfer (ALT/SGP 16 U/L (12-78); Albumin, Blood 2.2 g/dL (3.4-5.0); Albumin/Globulin Ratio 0.6 (0.8-1.8); Alk Phos 75 U/L (50-136); Anion Gap 4 mmol/L (6-16); Aspartate Aminotrans (AST/SGOT 13 U/L (12-37); Bilirubin, Total 0.3 mg/dL (0.1-1.0); Blood Urea Nitrogen 12 mg/dL (8-24); Bun/Creatinine Ratio 15.9 (12.0-20.0); CO2, Blood 31 mmol/L (21-32); Calcium, Blood 8.8 mg/dL (8.5-10.1); Chloride, Blood 106 mmol/L (98-108); Creatinine, Blood 0.75 mg/dL (0.40-1.00); Globulin, Blood 3.7 g/dL (2.2-4.0); Glomerular Filtration Rate >60 (60-); Glucose, Blood 173 mg/dL (70-99); Phosphorus, Blood 2.3 mg/dL (2.5-4.9); Potassium, Blood 3.7 mmol/L (3.5-5.5); Sodium, Blood 141 mmol/L (136-145); Total Protein, Blood 5.9 g/dL (6.4-8.2)
--- NOTE | 2019-06-25 05:57 | NUR ---
06/25/19 0450 AWAKE AND ASSISTED TO BR FOR VOIDING. NO C/O DISCOMFORT OR S/S AT THIS TIME. CHEERFUL AND STATES SHE SLEPT ON AND OFF. VITALS REMAIN STABLE. PEG TUBE PATENT AND SECURED TO ABDOMEN WITH DRESSING AND TAPE. HAS TOLERATED LATE EVENING FEEDING WITHOUT PROBLEMS. RESIDUAL ONLY 25 ML.
--- NOTE | 2019-06-25 06:43 | NUR ---
06/25/19 0615 PT REMOVED DRESSING TO RT ELBOW "BECAUSE IT WAS SLIPPING OFF". RECLEANSED WITH SALINE. NEOSPORIN OINTMENT,OIL EMULSION DRESSING, GUAZE AND COBAN APPLIED. INSTRUCTED PT NOT TO REMOVE DRESSING AND TO CALL IF IT NEEDS ATTENTION. SHE STATES SHE WILL CALL NEXT TIME.
--- NOTE | 2019-06-25 18:04 | NUR ---
SHIFT SUMMARY PT AWAKE, RESTING QUIETLY DURING SHIFT REPORT. NO C/O. PT NPO WITH BOLUS FEEDS THRU PEG TUBE. PT IS A&O, PLEASANT AND CO-OP. WEAK, BUT ABLE TO AMBULATE TO BTHRM WITH FWW AND 1P ASSIST. PT RECENTLY STARTED ON FLOMAX D/T DIFFICULTY VOIDING. PT REPORTED FEELING THE NEED TO GO, BUT THEN UNABLE TO ONCE ON THE TOILET. PT LIVES AT HOME WITH . TUBE FEEDING TEACHING DONE TODAY WITH PT AND SPOUSE. ONE BOLUS FEED AND ONE BOLUS WATER HELD TODAY D/T HIGH RESIDUALS. DR DORADO IN TO SEE PT; NEW ORDERS RECEIVED. PT STARTED ON REGLAN TO GET BOWELS MOVING. PT REPORTED NOT EATING FOR ABOUT 5 DAYS AND "THINGS JUST SHUT DOWN". NO BM FOR 2 DAYS, BUT DOES NOT WANT DIARRHEA. LUNGS T/O COARSE IN THE BASES; GREATER IN RLL THAN LLL. MEDICATED FOR SEVERE COUGHING EPISODES RESULTING IN ABD PAIN AT PEG TUBE SITE AND RISK FOR ASPIRATION FROM COUGHING SO HARD THAT SHE WANTED TO VOMIT. TYLENOL WITH CODIENE HELPFUL WITH COUGH AND PAIN. PT TO STAY ANOTHER DAY OR SO D/T COUGH, PAIN, AND PEG TUBE RESIDUALS. IN CONTACT ISO FOR CURRENT ESBL IN THE URINE AND SPUTUM. CALL LT IN REACH. ABLE TO MAKE NEEDS KNOWN.
--- NOTE | 2019-06-26 04:37 | NUR ---
06/26/19 0430 PT SLEEPING ON AND OFF THIS SHIFT. TOLERATED PEG FEEDING AT 2100. RESIDUAL WAS 0. THIS AM, RESIDUAL WAS 25 ML AT 0245 WITH MED FOR PAIN GIVEN. VITALS STABLE. PT HOPING TO GO HOME TODAY.
[2019-06-26 05:01] LABS: BASOPHILS ABSOLUTE AUTO 0.05 K/mm3 (0.00-0.23); BASOPHILS PERCENT AUTO 1 % (0-2); EOSINOPHILS ABSOLUTE AUTO 0.21 K/mm3 (0.00-0.68); EOSINOPHILS PERCENT AUTO 3 % (0-6); Hematocrit 36.8 % (33.0-51.0); Hemoglobin 11.2 g/dL (11.5-16.0); IMMATURE GRAN ABSOLUTE AUTO 0.06 K/mm3 (0.00-0.10); IMMATURE GRAN PERCENT AUTO 1 % (0-1); LYMPHOCYTES ABSOLUTE AUTO 1.41 K/mm3 (0.84-5.20); LYMPHOCYTES PERCENT AUTO 21 % (21-46); MONOCYTES ABSOLUTE AUTO 0.61 K/mm3 (0.16-1.47); MONOCYTES PERCENT AUTO 9 % (4-13); Mean Corpuscular HGB 28.8 pg (26.0-34.0); Mean Corpuscular HGB Conc 30.4 g/dL (31.5-36.5); Mean Corpuscular Volume 95 fL (80-100); Mean Platelet Volume 11.6 fL (9.1-12.4); NEUTROPHILS ABSOLUTE AUTO 4.47 K/mm3 (1.96-9.15); NEUTROPHILS PERCENT AUTO 66 % (41-73); Platelet Count 241 K/mm3 (150-400); RDW Coefficient Variation 13.5 % (11.7-14.2); RDW Standard Deviation 47.3 fL (35.1-46.3); Red Blood Cell Count 3.89 M/mm3 (3.80-5.20); White Blood Cell Count 6.81 K/mm3 (4.00-11.30)
[2019-06-26 05:20] LABS: Alanine Aminotransfer (ALT/SGP 17 U/L (12-78); Albumin, Blood 2.3 g/dL (3.4-5.0); Albumin/Globulin Ratio 0.6 (0.8-1.8); Alk Phos 73 U/L (50-136); Anion Gap 3 mmol/L (6-16); Aspartate Aminotrans (AST/SGOT 24 U/L (12-37); Bilirubin, Total 0.2 mg/dL (0.1-1.0); Blood Urea Nitrogen 15 mg/dL (8-24); Bun/Creatinine Ratio 20.4 (12.0-20.0); CO2, Blood 32 mmol/L (21-32); Calcium, Blood 8.9 mg/dL (8.5-10.1); Chloride, Blood 105 mmol/L (98-108); Creatinine, Blood 0.74 mg/dL (0.40-1.00); Globulin, Blood 3.7 g/dL (2.2-4.0); Glomerular Filtration Rate >60 (60-); Glucose, Blood 140 mg/dL (70-99); Sodium, Blood 140 mmol/L (136-145)
--- NOTE | 2019-06-26 09:03 | NUR ---
PATIENT DID NOT EAT BREAKFAST THIS SHIFT DUE TO BEING NPO AT THIS TIME.
--- NOTE | 2019-06-26 10:28 | NUR ---
DR MUNSON BY TO SEE PT
--- NOTE | 2019-06-26 11:36 | NUR ---
residual 250 pt up in chair will hold the 1200 feed and check again with the water bolus reglan given no nausea at this time pt given swabs and mouth moist for oral care pt at bedside earlier pt given tylenol 3 for cough plan for poss discharge tue or wed
--- NOTE | 2019-06-26 13:31 | NUR ---
PATIENT DID NOT EAT LUNCH THIS SHIFT DUE TO BEING NPO AT THIS TIME.
--- NOTE | 2019-06-26 13:56 | NUR ---
40 ml residual yellow/green liquid pt laying back in bed 300 ml water bolus dietary by to see pt
--- NOTE | 2019-06-26 18:19 | NUR ---
PT REQ PAIN MEDS TYLENOL 3 GIVEN PER PEG TUBE
--- NOTE | 2019-06-26 18:30 | NUR ---
PATIENT DID NOT EAT DINNER THIS SHIFT DUE TO BEING NPO AT THIS TIME.
--- NOTE | 2019-06-27 07:27 | NUR ---
06/27/19 0620 SLEPT WELL. LESS COUGHING NOTED THIS SHIFT. MEDICATED FOR PAIN TWICE. TOOK 300 ML BOLUS THIS AM WITH MEDS. TOLERATED WELL. RESIDUAL < 30 ML THIS SHIFT.
[2019-06-27] MEDS ORDERED: ACETAMIN-CODE12.5 ML PT (09:52)
[2019-06-27] MEDS ORDERED: METO10 PT (09:53)
[2019-06-27] MEDS ORDERED: Zegerid 20 MG1 EAC1 PT (09:55)
[2019-06-27] MEDS ORDERED: DOXA1 PT (09:55)
[2019-06-27] MEDS ORDERED: LEVFLO500 PT (09:56)
--- NOTE | 2019-06-27 17:26 | NUR ---
SHIFT SUMMARY NO ACUTE CHANGES. PATIENT MEDICATED X1 FOR PAIN. DENIES NAUSEA AND SHORTNESS OF BREATH. UP ONE ASSIST W/FWW TO BATHROOM. TOLERATING BOLUS FEEDING WELL. PATIENT DISCHARGE DELAYED UNTIL TOMORROW. PT AND OT CONSULT TODAY. BLADDER SCAN FOR POST VOID RESIDUALS PRN. CALL LIGHT IN REACH.
--- NOTE | 2019-06-27 23:36 | NUR ---
BEGINNING SHIFT SUMMARY ASSUMED CARE OF PT AT 1900. PT IS A/O X4, PT WAS SITTING IN BED WATCHING TV. HEART SOUNDS REGULAR, CRACKLES HEARD AT THE BASES OF LUNGS. PT ABDOMEN IS DSTENDED, TENDER, AND HYPOACTIVE, PT HAS HAD PEG TUBE FOR THREE DAYS, MEDICATIONS DRAINED FINE, MORE THAN 60 ML OF RESIDUAL, THIS NURSE HELD THE LAST TUBE FEEDING DUE TO THIS, PT DENIED HUNGER OR FULLNESS, PT STATED PAIN AT INCISION SITE, MEDICATED PER EMAR. PT FREQUENTLY GETS UP TO VOID, USES CALL LIGHT APPROPRIATELY, URINE CLEAR AND YELLOW. PT IS CURRENTLY SLEEPING, CALL LIGHT IN REACH, BED IN LOWEST POSTION, WILL CONTINUE TO MONITOR.
--- NOTE | 2019-06-28 05:03 | NUR ---
END SHIFT SUMMARY NO ACUTE CHANGES NOTED T/O THE NIGHT. PT AWOKEN TWICE TO USE THE RESTROOM. PT C/O PAIN DUE TO COUGHING AND AT THE INCISION SITE, MEDICATED PER EMAR. BLADDER SCANNED PT ONCE, RISUDUAL VOLUME WAS 239, PT DENIES PAIN. PT HAD SCANT RESIDUAL IN HER PEG TUBE THIS MORNING WHEN GIVING MORNING MEDICATIONS. PT IS CURRENTLY SLEEPING, CALL LIGHT IN REACH, BED IN LOWEST POSTION, WILL CONTINUE TO MONITOR UNTIL DAYSHIFT NURSE ARRIVES.
--- NOTE | 2019-06-28 14:53 | NUR ---
DISCHARGE DISCHARGE MEDICATIONS AND INSTRUCTIONS EXPLAINED TO PATIENT AND PATIENT'S . PEG TUBE FEEDING AND MAINTENANCE WERE COVERED. PORTABLE 02 WITH PATIENT. FOLLOW UP WITH PCP SCHEDULED. PATIENT TRANSFERED TO PRIVATE VEHICLE VIA WHEELCHAIR.
== END 2019-06-28 13:53 | disposition home health service (06) | DRG 871 ==
LOC: ER 16:12 → MEDS 18:35 → ER 20:51 → MEDS 20:51 → ENPENDDIS 06-27 09:38 → MEDS 06-28 13:53
PROVIDERS: Emergency Medicine; Internal Medicine; Surgery; ADMIT Internal Medicine
PROC: 0DH63UZ Insertion of Feeding Device into Stomach, Percutaneous Approach (ICD-10-PCS; principal; 2019-06-22 13:30)
DX: A41.9 Sepsis, unspecified organism (principal); J96.01 Acute respiratory failure with hypoxia; J69.0 Pneumonitis due to inhalation of food and vomit; I21.A1 Myocardial infarction type 2; N17.9 Acute kidney failure, unspecified; R65.20 Severe sepsis without septic shock; I10 Essential (primary) hypertension; E11.9 Type 2 diabetes mellitus without complications; J45.909 Unspecified asthma, uncomplicated; G47.33 Obstructive sleep apnea (adult) (pediatric); I25.10 Atherosclerotic heart disease of native coronary artery without angina pectoris; D64.9 Anemia, unspecified; E78.5 Hyperlipidemia, unspecified; K21.9 Gastro-esophageal reflux disease without esophagitis; Z95.5 Presence of coronary angioplasty implant and graft; Z99.81 Dependence on supplemental oxygen; I25.2 Old myocardial infarction; Z79.82 Long term (current) use of aspirin; Z79.4 Long term (current) use of insulin; Z79.52 Long term (current) use of systemic steroids; Z79.899 Other long term (current) drug therapy
CPT/HCPCS: 36415; 36600; 71046; 71250; 74230; 80048; 80053; 81001; 82728; 82803; 82947; 83540; 83550; 83605; 83735; 84100; 84145; 84484; 85025; 85027; 87040; 87070; 87077; 87086; 87186; 87205; 92610; 92611; 93005; 93010; 93306; 94640; 94760; 94761; 96374; 97110; 97162; 97165; 97530; 99285-25; A9270-GY; C1769; J1650; J1956; J2250; J2543; J2704; J3010; J7042; J7050; J7120

== ENCOUNTER 2019-07-02 10:37 | Emergency (ER) | payer MEDICARE ==
[~2019-07-02] VITALS: Ht 170.2 cm; Wt 86.2 kg
[~2019-07-02 10:37] MED LIST changes: +ACETAMIN-CODE12.5 ML PT; +BASAGLAR K100 UNIT/2 SC; +DOXA1 PT; +LEVFLO500 PT; +Lomotil Tablet1 EACH PO; +Loratadine10 MG PT; +METO10 PT; +SPIRIVA RESPIMAT4 GM INH; +Zegerid 20 MG1 EAC1 PT
== END 2019-07-02 12:00 | disposition home or self-care (01) ==
LOC: ER 10:37
DX: Z43.1 Encounter for attention to gastrostomy (principal); Z88.1 Allergy status to other antibiotic agents; Z79.82 Long term (current) use of aspirin; Z79.899 Other long term (current) drug therapy; Z79.4 Long term (current) use of insulin; I10 Essential (primary) hypertension; I25.10 Atherosclerotic heart disease of native coronary artery without angina pectoris; J45.909 Unspecified asthma, uncomplicated; E78.5 Hyperlipidemia, unspecified; G47.33 Obstructive sleep apnea (adult) (pediatric)
CPT/HCPCS: 99283

== ENCOUNTER 2019-07-03 16:12 | Emergency (ER) | payer MEDICARE ==
[~2019-07-03] VITALS: Ht 170.2 cm; Wt 90.7 kg
[2019-07-03 17:58] LABS: BASOPHILS ABSOLUTE AUTO 0.06 K/mm3 (0.00-0.23); BASOPHILS PERCENT AUTO 1 % (0-2); EOSINOPHILS ABSOLUTE AUTO 0.14 K/mm3 (0.00-0.68); EOSINOPHILS PERCENT AUTO 2 % (0-6); Hematocrit 36.8 % (33.0-51.0); Hemoglobin 11.3 g/dL (11.5-16.0); IMMATURE GRAN ABSOLUTE AUTO 0.03 K/mm3 (0.00-0.10); IMMATURE GRAN PERCENT AUTO 0 % (0-1); LYMPHOCYTES ABSOLUTE AUTO 1.82 K/mm3 (0.84-5.20); LYMPHOCYTES PERCENT AUTO 20 % (21-46); MONOCYTES ABSOLUTE AUTO 0.85 K/mm3 (0.16-1.47); MONOCYTES PERCENT AUTO 9 % (4-13); Mean Corpuscular HGB 28.9 pg (26.0-34.0); Mean Corpuscular HGB Conc 30.7 g/dL (31.5-36.5); Mean Corpuscular Volume 94 fL (80-100); NEUTROPHILS ABSOLUTE AUTO 6.18 K/mm3 (1.96-9.15); NEUTROPHILS PERCENT AUTO 68 % (41-73); Platelet Count 320 K/mm3 (150-400); RDW Coefficient Variation 13.5 % (11.7-14.2); Red Blood Cell Count 3.91 M/mm3 (3.80-5.20); White Blood Cell Count 9.08 K/mm3 (4.00-11.30)
[2019-07-03 18:12] LABS: Alanine Aminotransfer (ALT/SGP 21 U/L (12-78); Albumin/Globulin Ratio 0.7 (0.8-1.8); Alk Phos 84 U/L (50-136); Anion Gap 3 mmol/L (6-16); Aspartate Aminotrans (AST/SGOT 16 U/L (12-37); Bilirubin, Total 0.4 mg/dL (0.1-1.0); Blood Urea Nitrogen 16 mg/dL (8-24); Bun/Creatinine Ratio 18.5 (12.0-20.0); CO2, Blood 29 mmol/L (21-32); Calcium, Blood 9.4 mg/dL (8.5-10.1); Chloride, Blood 108 mmol/L (98-108); Creatinine, Blood 0.87 mg/dL (0.40-1.00); Globulin, Blood 4.1 g/dL (2.2-4.0); Glomerular Filtration Rate >60 (60-); Glucose, Blood 88 mg/dL (70-99); Sodium, Blood 140 mmol/L (136-145); Total Protein, Blood 7.1 g/dL (6.4-8.2)
== END 2019-07-03 19:48 | disposition home or self-care (01) ==
LOC: ER 16:12
PROVIDERS: Emergency Medicine
DX: K94.23 Gastrostomy malfunction (principal); I10 Essential (primary) hypertension; I25.10 Atherosclerotic heart disease of native coronary artery without angina pectoris; K21.9 Gastro-esophageal reflux disease without esophagitis; E78.5 Hyperlipidemia, unspecified; Z88.1 Allergy status to other antibiotic agents; Z79.899 Other long term (current) drug therapy; Z79.51 Long term (current) use of inhaled steroids; Z79.4 Long term (current) use of insulin; Z79.82 Long term (current) use of aspirin
CPT/HCPCS: 36415; 49465; 74018; 80053; 83690; 85025; 99283-25; J7030; Q9963

== ENCOUNTER → 2019-07-16 | Outpatient (CLI) | payer MEDICARE | END | disposition home or self-care (01) | LOC: LAB SHORT 21:45 → OLS 21:45 | DX: R19.7 Diarrhea, unspecified (principal) | CPT/HCPCS: 87177; 87209 ==

== ENCOUNTER → 2019-07-17 | Outpatient (CLI) | payer MEDICARE | END | disposition home or self-care (01) | LOC: LAB SHORT 09:50 → OLS 09:50 | DX: R19.7 Diarrhea, unspecified (principal) | CPT/HCPCS: 87015; 87045; 87046; 87205; 87493; 87899 ==

== ENCOUNTER → 2019-07-29 | Outpatient (CLI) | payer MEDICARE | END | disposition home or self-care (01) | LOC: OLS 15:14 → LAB SHORT 15:14 | DX: K52.9 Noninfective gastroenteritis and colitis, unspecified (principal) | CPT/HCPCS: 84376; 87493 ==

== ENCOUNTER → 2019-07-30 | Outpatient (CLI) | payer MEDICARE | END | disposition home or self-care (01) | LOC: OLS 14:00 → LAB SHORT 14:00 → LAB FUT 07-26 15:30 | DX: K52.9 Noninfective gastroenteritis and colitis, unspecified (principal) | CPT/HCPCS: 84376 ==

== ENCOUNTER → 2019-07-31 | Outpatient (CLI) | payer MEDICARE | END | disposition home or self-care (01) | LOC: LAB SHORT 11:20 → OLS 11:20 | DX: K52.9 Noninfective gastroenteritis and colitis, unspecified (principal) | CPT/HCPCS: 87015; 87045; 87046; 87205; 87899 ==

== ENCOUNTER → 2019-08-01 | Outpatient (CLI) | payer MEDICARE | END | disposition home or self-care (01) | LOC: LAB SHORT 15:17 → OLS 15:17 | DX: K52.9 Noninfective gastroenteritis and colitis, unspecified (principal) | CPT/HCPCS: 87177; 87209 ==

== ENCOUNTER → 2019-12-21 | Outpatient (CLI) | payer MEDICARE | END | disposition home or self-care (01) | LOC: LAB 11:15 → LAB SHORT 11:15 | DX: L02.91 Cutaneous abscess, unspecified (principal) | CPT/HCPCS: 87070; 87075; 87205 ==

== ENCOUNTER → 2019-12-25 | Outpatient (CLI) | payer MEDICARE | END | disposition home or self-care (01) | LOC: LAB SHORT 18:46 → LAB 18:46 | DX: L02.91 Cutaneous abscess, unspecified (principal) | CPT/HCPCS: 87070; 87075; 87205 ==

== ENCOUNTER → 2020-03-07 | Outpatient (CLI) | payer MEDICARE | END | disposition home or self-care (01) | LOC: LAB SHORT 17:27 → LAB 17:27 | DX: L02.211 Cutaneous abscess of abdominal wall (principal); B37.0 Candidal stomatitis; L03.90 Cellulitis, unspecified | CPT/HCPCS: 87070; 87075; 87077; 87081; 87186; 87205 ==

== ENCOUNTER 2020-04-13 18:19 | Emergency (ER) | payer MEDICARE ==
[~2020-04-13] VITALS: Ht 170.2 cm; Wt 72.6 kg
== END 2020-04-14 00:32 | disposition home or self-care (01) ==
LOC: ER 18:19
DX: K56.41 Fecal impaction (principal); I10 Essential (primary) hypertension; I25.10 Atherosclerotic heart disease of native coronary artery without angina pectoris; K21.9 Gastro-esophageal reflux disease without esophagitis; E78.5 Hyperlipidemia, unspecified; I25.2 Old myocardial infarction; Z79.4 Long term (current) use of insulin; Z79.82 Long term (current) use of aspirin; Z79.899 Other long term (current) drug therapy; Z88.1 Allergy status to other antibiotic agents
CPT/HCPCS: 36415; 74018; 99284-25

== ENCOUNTER 2020-05-13 00:57 | Day surgery (SDC) | payer MEDICARE | END 2020-05-13 23:43 | disposition home or self-care (01) | LOC: WOUND 00:57 | DX: E11.622 Type 2 diabetes mellitus with other skin ulcer (principal); L98.492 Non-pressure chronic ulcer of skin of other sites with fat layer exposed; S31.103A Unspecified open wound of abdominal wall, right lower quadrant without penetration into peritoneal cavity, initial encounter; E11.52 Type 2 diabetes mellitus with diabetic peripheral angiopathy with gangrene; I96 Gangrene, not elsewhere classified; D64.9 Anemia, unspecified; J45.909 Unspecified asthma, uncomplicated; G47.30 Sleep apnea, unspecified; E78.00 Pure hypercholesterolemia, unspecified; I10 Essential (primary) hypertension; I25.10 Atherosclerotic heart disease of native coronary artery without angina pectoris; I25.2 Old myocardial infarction; M19.90 Unspecified osteoarthritis, unspecified site; K21.9 Gastro-esophageal reflux disease without esophagitis; M51.36 Other intervertebral disc degeneration, lumbar region; G89.29 Other chronic pain; M54.9 Dorsalgia, unspecified; M54.10 Radiculopathy, site unspecified; Z93.1 Gastrostomy status; Z88.1 Allergy status to other antibiotic agents; Z79.82 Long term (current) use of aspirin; Z79.51 Long term (current) use of inhaled steroids; Z79.899 Other long term (current) drug therapy; Z79.4 Long term (current) use of insulin; X58.XXXA Exposure to other specified factors, initial encounter | CPT/HCPCS: G0463 ==

== ENCOUNTER 2021-11-18 07:42 | Day surgery (SDC) | payer MEDICARE ==
[~2021-11-18] VITALS: Ht 170.2 cm; Wt 82.7 kg
[~2021-11-18 07:42] MED LIST changes: +ALBU90OI INH; +BASAGLAR K100 UNIT/6 SC; +ZOCOR20 MG PO
[2021-11-18] MEDS ORDERED: FLUT1DIS8 (08:11)
== END 2021-11-18 08:55 | disposition home or self-care (01) ==
LOC: ORSCSDS 07:42
PROVIDERS: Anesthesiology
PROC: 3E0R33Z Introduction of Anti-inflammatory into Spinal Canal, Percutaneous Approach (ICD-10-PCS; principal; 2021-11-18 08:30)
DX: M51.16 Intervertebral disc disorders with radiculopathy, lumbar region (principal); M48.061 Spinal stenosis, lumbar region without neurogenic claudication; I25.10 Atherosclerotic heart disease of native coronary artery without angina pectoris; E78.00 Pure hypercholesterolemia, unspecified; J45.909 Unspecified asthma, uncomplicated; R13.10 Dysphagia, unspecified; I10 Essential (primary) hypertension; Z79.82 Long term (current) use of aspirin; Z79.4 Long term (current) use of insulin; Z79.899 Other long term (current) drug therapy
CPT/HCPCS: 82947; J1040

== ENCOUNTER 2021-12-31 13:42 | Day surgery (SDC) | payer MEDICARE ==
[~2021-12-31] VITALS: Ht 170.2 cm; Wt 81.4 kg
[~2021-12-31 13:42] MED LIST changes: +FLUT1DIS8
[2021-12-31] MEDS ORDERED: CLARITIN5 MG/5 M1 (14:29)
[2021-12-31] MEDS ORDERED: LORA10ER PO (14:30)
== END 2021-12-31 15:10 | disposition home or self-care (01) ==
LOC: ORSCSDS 13:42
PROVIDERS: Anesthesiology
PROC: 3E0R33Z Introduction of Anti-inflammatory into Spinal Canal, Percutaneous Approach (ICD-10-PCS; principal; 2021-12-31 15:00)
DX: M51.16 Intervertebral disc disorders with radiculopathy, lumbar region (principal); M48.00 Spinal stenosis, site unspecified; I25.10 Atherosclerotic heart disease of native coronary artery without angina pectoris; R13.10 Dysphagia, unspecified; I21.9 Acute myocardial infarction, unspecified; I10 Essential (primary) hypertension; E11.8 Type 2 diabetes mellitus with unspecified complications; J45.909 Unspecified asthma, uncomplicated; E78.00 Pure hypercholesterolemia, unspecified; Z79.899 Other long term (current) drug therapy
CPT/HCPCS: J1040

== ENCOUNTER 2022-02-03 12:48 | Day surgery (SDC) | payer MEDICARE ==
[~2022-02-03] VITALS: Ht 170.2 cm; Wt 80.9 kg
[~2022-02-03 12:48] MED LIST changes: +CLARITIN5 MG/5 M1
== END 2022-02-03 13:54 | disposition home or self-care (01) ==
LOC: ORSCSDS 12:48
PROVIDERS: Anesthesiology
PROC: 3E0R33Z Introduction of Anti-inflammatory into Spinal Canal, Percutaneous Approach (ICD-10-PCS; principal; 2022-02-03 14:00)
DX: M51.16 Intervertebral disc disorders with radiculopathy, lumbar region (principal); I25.10 Atherosclerotic heart disease of native coronary artery without angina pectoris; I25.2 Old myocardial infarction; I10 Essential (primary) hypertension; J45.909 Unspecified asthma, uncomplicated; E78.00 Pure hypercholesterolemia, unspecified; R13.10 Dysphagia, unspecified; Z79.899 Other long term (current) drug therapy
CPT/HCPCS: J1040

== ENCOUNTER 2022-04-19 13:54 | Inpatient (IN) | payer MEDICARE ==
[~2022-04-19] VITALS: Ht 170.2 cm; Wt 80.0 kg
[~2022-04-19 13:54] MED LIST changes: -BASAGLAR K100 UNIT/1 SC; -DOXY100 PO; -FLUTICASONE-SA1 EA10; -LATANOPROST 0.7.5 M3 BOTHEYES; -LEVO750 PO; -Norco 5-325 Ta1 EACH PO; -Prednisone20 MG PO; -Simvastatin20 MG PO; -VISBIOME 112.51 EACH PO
[2022-04-19 14:37] LABS: Albumin, Blood 2.7 g/dL (3.4-5.0); Albumin/Globulin Ratio 0.7 (0.8-1.8); Bilirubin, Total 0.5 mg/dL (0.1-1.0); Calcium, Blood 9.2 mg/dL (8.5-10.1); Creatinine, Blood 0.87 mg/dL (0.40-1.00); Globulin, Blood 3.9 g/dL (2.2-4.0); Potassium, Blood 4.3 mmol/L (3.5-5.5); Total Protein, Blood 6.6 g/dL (6.4-8.2)
[2022-04-19 15:04] LABS: Hematocrit 41.3 % (33.0-51.0); Hemoglobin 13.8 g/dL (11.5-16.0); Mean Corpuscular HGB 29.2 pg (26.0-34.0); Mean Corpuscular HGB Conc 33.4 g/dL (31.5-36.5); Mean Corpuscular Volume 87 fL (80-100); Mean Platelet Volume 12.2 fL (9.1-12.4); Platelet Count 194 K/mm3 (150-400); RDW Coefficient Variation 13.6 % (11.7-14.2); RDW Standard Deviation 43.8 fL (35.1-46.3); Red Blood Cell Count 4.73 M/mm3 (3.80-5.20)
[2022-04-19 15:12] LABS: White Blood Cell Count 20.39 K/mm3 (4.00-11.30)
[2022-04-19 15:37] LABS: BAND PERCENT MAN 9 % (0-8); BASOPHILS PERCENT MAN 0 % (0-2); EOSINOPHILS PERCENT MAN 0 % (0-6); LYMPHOCYTES % ATYPICAL MANUAL 1 % (0-0); LYMPHOCYTES ABSOLUTE MAN 1.22 K/mm3 (0.84-5.20); LYMPHOCYTES PERCENT MAN 5 % (21-46); MONOCYTES ABSOLUTE MAN 2.44 K/mm3 (0.16-1.47); MONOCYTES PERCENT MAN 12 % (4-13); NEUTROPHILS ABSOLUTE MAN 16.71 K/mm3 (1.96-9.15); SEG NEUTROPHILS PERCENT MAN 73 % (41-73); TOTAL CELLS COUNTED 100
[2022-04-20] MEDS ORDERED: LATANOPROST 0.7.5 M3 BOTHEYES ×2 (00:40)
[2022-04-20] MEDS ORDERED: BASAGLAR K100 UNIT/1 SC ×2 (00:43)
[2022-04-20 05:01] LABS: Hematocrit 38.7 % (33.0-51.0); Hemoglobin 12.3 g/dL (11.5-16.0); Mean Corpuscular HGB 28.7 pg (26.0-34.0); Mean Corpuscular HGB Conc 31.8 g/dL (31.5-36.5); Mean Corpuscular Volume 90 fL (80-100); Mean Platelet Volume 11.8 fL (9.1-12.4); Platelet Count 184 K/mm3 (150-400); RDW Coefficient Variation 13.8 % (11.7-14.2); Red Blood Cell Count 4.29 M/mm3 (3.80-5.20); White Blood Cell Count 16.99 K/mm3 (4.00-11.30)
[2022-04-20 05:16] LABS: Albumin, Blood 2.2 g/dL (3.4-5.0); Anion Gap 8 mmol/L (6-16); Blood Urea Nitrogen 22 mg/dL (8-24); Bun/Creatinine Ratio 26.1 (12.0-20.0); CO2, Blood 26 mmol/L (21-32); Calcium, Blood 9.2 mg/dL (8.5-10.1); Chloride, Blood 106 mmol/L (98-108); Creatinine, Blood 0.84 mg/dL (0.40-1.00); Glomerular Filtration Rate 69 (60-); Glucose, Blood 134 mg/dL (70-99); Phosphorus, Blood 2.4 mg/dL (2.5-4.9); Potassium, Blood 4.2 mmol/L (3.5-5.5); Sodium, Blood 140 mmol/L (136-145)
--- NOTE | 2022-04-20 05:27 | NUR ---
SHIFT SUMMARY PT A&OX4, PLEASANT AND COOPERATIVE. MEDICATING FOR PAIN PER EMAR. PT HAS BEEN NPO SINCE 0000. SBA TO BATHROOM WITH FWW/GB. CONTINUED ORDERED ABX. CALLS APPROPRIATELY, CALL LIGHT WITHIN REACH.
[2022-04-20 07:08] LABS: Influenza A, PCR NEGATIVE (NEGATIVE); Influenza B, PCR NEGATIVE (NEGATIVE); Resp Syncytial Virus, PCR NEGATIVE (NEGATIVE); SARS-Cov-2 (COVID-19) PCR, MMC NEGATIVE (NEGATIVE)
--- NOTE | 2022-04-20 17:27 | NUR ---
SUMMARY C/O L SIDED ABD PAIN, REPORTS PAIN IS MANAGEABLE WITH IV DILAUDID, PT MEDICATED X2 TODAY FOR PAIN, DENIES ANY NAUSEA, AMBULATES TO THE BATHROOM WITH STANDBY ASSIST, PLAN FOR CT GUIDED DRAINAGE OF ABD ABCESS TOMORROW AROUND 10AM PER RADIOLOGIST, PEG TUBE INTACT, PT DID OWN SITE CARE AND CHANGED DRESSING TODAY, NO ACUTE CHANGES THIS SHIFT.
--- NOTE | 2022-04-21 04:57 | NUR ---
SHIFT SUMMARY PT A&OX4, PLEASANT AND COOPERATIVE. NO ACUTE CHANGES, VSS. MEDICATED FOR PAIN PER EMAR. NPO SINCE 0000. SBA TO BATHROOM. CONTINUED ORDERED ABX. PT STATES SHE'S BEEN PASSING SOME FLATUS. CALLS APPROPRIATELY, CALL LIGHT WITHIN REACH. PLAN IS FOR A CT GUIDED DRAIN PLACEMENT TODAY.
[2022-04-21 07:54] LABS: International Normalized Ratio 1.08; Prothrombin Time Results 11.3 Sec (9.7-11.5)
[2022-04-21 08:32] LABS: BASOPHILS ABSOLUTE AUTO 0.02 K/mm3 (0.00-0.23); BASOPHILS PERCENT AUTO 0 % (0-2); EOSINOPHILS ABSOLUTE AUTO 0.17 K/mm3 (0.00-0.68); EOSINOPHILS PERCENT AUTO 1 % (0-6); Hematocrit 38.8 % (33.0-51.0); Hemoglobin 12.6 g/dL (11.5-16.0); IMMATURE GRAN ABSOLUTE AUTO 0.07 K/mm3 (0.00-0.10); IMMATURE GRAN PERCENT AUTO 1 % (0-1); LYMPHOCYTES ABSOLUTE AUTO 1.44 K/mm3 (0.84-5.20); LYMPHOCYTES PERCENT AUTO 12 % (21-46); MONOCYTES ABSOLUTE AUTO 0.99 K/mm3 (0.16-1.47); MONOCYTES PERCENT AUTO 8 % (4-13); Mean Corpuscular HGB 28.9 pg (26.0-34.0); Mean Corpuscular HGB Conc 32.5 g/dL (31.5-36.5); Mean Corpuscular Volume 89 fL (80-100); Mean Platelet Volume 10.6 fL (9.1-12.4); NEUTROPHILS ABSOLUTE AUTO 9.35 K/mm3 (1.96-9.15); NEUTROPHILS PERCENT AUTO 78 % (41-73); Platelet Count 223 K/mm3 (150-400); RDW Coefficient Variation 13.7 % (11.7-14.2); RDW Standard Deviation 45.1 fL (35.1-46.3); Red Blood Cell Count 4.36 M/mm3 (3.80-5.20); White Blood Cell Count 12.04 K/mm3 (4.00-11.30)
--- NOTE | 2022-04-21 12:11 | NUR ---
PT BACK FROM CT, URESIL DRAIN NOTED ON L ABD, SMALL AMOUNT OF REDDISH DODSON DRAINAGE NOTED IN DRAIN, PT DENIES ANY NEED FOR PAIN MEDS AT THIS TIME, DR. PABLO HERE TO SEE PT.
--- NOTE | 2022-04-21 14:30 | NUR ---
ASSUMING CARE OF PT FROM SANDIE Armenta RN. PT RESTING WITH DOOR CLOSED.
--- NOTE | 2022-04-21 16:59 | NUR ---
SUMMARY NO ACUTE CHANGES SINCE ASSUMING CARE OF PT. PT INDEPENDENT IN ROOM. IV FLUIDS INFUSING PER ORDERS. MEDICATED PER ORDERS FOR PAIN. URESIL DRAIN COMPRESSED. DRAINING SMALL AMOUNT THICK REDDISH FLUID. CALL LIGHT IN REACH.
--- NOTE | 2022-04-22 04:50 | NUR ---
SHIFT SUMMARY A/O X4- SBA IN ROOM. VITAL SIGNS STABLE. PAIN MANAGED W/ IV PAIN MEDICATION. URISEL DRAIN PUTTING OUT SMALL AMOUNT OF RED THICK DRAINAGE. VOIDING WELL. CBG'S STABLE THROUGHOUT SHIFT, NO INSULIN COVERAGE NEEDED. NPO W/ ICE CHIPS TOLERATED WELL. WILL CONTINUE TO MONITOR AND REPORT TO ONCOMING RN.
[2022-04-22 05:15] LABS: BASOPHILS ABSOLUTE AUTO 0.01 K/mm3 (0.00-0.23); BASOPHILS PERCENT AUTO 0 % (0-2); EOSINOPHILS ABSOLUTE AUTO 0.36 K/mm3 (0.00-0.68); EOSINOPHILS PERCENT AUTO 4 % (0-6); Hematocrit 34.8 % (33.0-51.0); Hemoglobin 11.3 g/dL (11.5-16.0); IMMATURE GRAN ABSOLUTE AUTO 0.05 K/mm3 (0.00-0.10); IMMATURE GRAN PERCENT AUTO 1 % (0-1); LYMPHOCYTES ABSOLUTE AUTO 1.14 K/mm3 (0.84-5.20); LYMPHOCYTES PERCENT AUTO 13 % (21-46); MONOCYTES ABSOLUTE AUTO 0.97 K/mm3 (0.16-1.47); MONOCYTES PERCENT AUTO 11 % (4-13); Mean Corpuscular HGB 29.1 pg (26.0-34.0); Mean Corpuscular HGB Conc 32.5 g/dL (31.5-36.5); Mean Corpuscular Volume 90 fL (80-100); Mean Platelet Volume 10.8 fL (9.1-12.4); NEUTROPHILS ABSOLUTE AUTO 6.08 K/mm3 (1.96-9.15); NEUTROPHILS PERCENT AUTO 71 % (41-73); Platelet Count 226 K/mm3 (150-400); RDW Coefficient Variation 13.7 % (11.7-14.2); RDW Standard Deviation 45.3 fL (35.1-46.3); Red Blood Cell Count 3.88 M/mm3 (3.80-5.20); White Blood Cell Count 8.61 K/mm3 (4.00-11.30)
[2022-04-22 05:45] LABS: Bun/Creatinine Ratio 18.4 (12.0-20.0); Calcium, Blood 8.7 mg/dL (8.5-10.1); Creatinine, Blood 0.76 mg/dL (0.40-1.00); Potassium, Blood 3.5 mmol/L (3.5-5.5)
--- NOTE | 2022-04-22 19:03 | NUR ---
SHIFT SUMMARY PT POD 1 PLACEMENT OF URACEL DRAIN. DRAIN PUT OUT 60ML DARK BROWN PURULENT FLUID. PT PAIN WELL MANAGED WITH 0.5MG DILAUDID. PT UP TO CHAIR T/O SHIFT, SBA TO BATHROOM FOR ASSISTANCE W/LINES. PT WAS TO START CONTINUOUS FEEDS THIS EVENING, WE DO NOT HAVE TUBBING TO FIT HER PEG TUBE. PT STATES SHE WOULD PREFER TO JUST RE-START HER SYRINGE FEEDS TOMORROW. WILL DISCUSS WITH MD IN AM. PLAN TO CONTINUE IVF AND IV ABX AT THIS TIME.
[2022-04-23 04:40] LABS: BASOPHILS ABSOLUTE AUTO 0.02 K/mm3 (0.00-0.23); BASOPHILS PERCENT AUTO 0 % (0-2); EOSINOPHILS ABSOLUTE AUTO 0.32 K/mm3 (0.00-0.68); EOSINOPHILS PERCENT AUTO 4 % (0-6); Hematocrit 36.8 % (33.0-51.0); Hemoglobin 11.6 g/dL (11.5-16.0); IMMATURE GRAN ABSOLUTE AUTO 0.08 K/mm3 (0.00-0.10); IMMATURE GRAN PERCENT AUTO 1 % (0-1); LYMPHOCYTES PERCENT AUTO 18 % (21-46); MONOCYTES ABSOLUTE AUTO 0.92 K/mm3 (0.16-1.47); MONOCYTES PERCENT AUTO 12 % (4-13); Mean Corpuscular HGB 28.3 pg (26.0-34.0); Mean Corpuscular HGB Conc 31.5 g/dL (31.5-36.5); Mean Corpuscular Volume 90 fL (80-100); Mean Platelet Volume 10.9 fL (9.1-12.4); NEUTROPHILS ABSOLUTE AUTO 5.13 K/mm3 (1.96-9.15); NEUTROPHILS PERCENT AUTO 65 % (41-73); Platelet Count 235 K/mm3 (150-400); RDW Coefficient Variation 13.5 % (11.7-14.2); RDW Standard Deviation 44.9 fL (35.1-46.3); White Blood Cell Count 7.87 K/mm3 (4.00-11.30)
--- NOTE | 2022-04-23 04:50 | NUR ---
POD2 FOR A URACEL DRAIN PLACEMENT. DRESSING IS C/D/I, MINIMAL DRAINAGE FROM INSERTION SITE NOTED. DRAINAGE FROM THE URACEL REMAINS DARK BROWN/RED, THICK, AND MUCOUSY. VSS. THE PT SLEPT ON AND OFF T/O THE NIGHT. MEDICATED FOR PAIN ONCE WITH DILAUDID. THE PT AMBULATED TO THE BATHROOM MULTIPLE TIMES TO VOID W/O DIFFICULTY. NO BM'S. DENIES N/V. PLAN FOR PT TO RESTART TUBE FEEDS THIS AM AND STAY IN HOUSE UNTIL ABLE TO TOLLERATE BASELINE FEEDING RATE, AND RECIEVE IV ANTIBX. THE PATIENT IS CURRENTLY RESTING, IN NO DISTRESS. CALL LIGHT IN REACH.
[2022-04-23 05:01] LABS: Bun/Creatinine Ratio 13.3 (12.0-20.0); Calcium, Blood 8.7 mg/dL (8.5-10.1); Creatinine, Blood 0.75 mg/dL (0.40-1.00); Potassium, Blood 3.3 mmol/L (3.5-5.5)
--- NOTE | 2022-04-23 09:34 | NUR ---
DIETITIAN NOTIFED THAT DUE TO PT PEG TUBE BEING NON-COMPATABLE W/OUR FEEDING TUBE EQUIPMENT FEEDS WERE NOT STARTED LAST NIGHT. HE WILL ADJUST THE ORDER FOR SYRINGE FEEDS PT DOES HAVE 1 SYRINGE WITH HER.
--- NOTE | 2022-04-23 13:14 | NUR ---
TUBE FEEDS INITIATED AT 1245. PT GIVEN 75ML WATER BY GRAVITY PRIOR AND AFTER 100ML GRAVITY FEED TO PEG TUBE. PT TOLERATED WELL OF THIS TIIME.
--- NOTE | 2022-04-23 19:31 | NUR ---
SHIFT SUMMARY PT DRAIN W/MIN OUTPUT OF THICK PURULENT LIQUID T/O SHIFT. PT WAS STARTED BACK ON TUBE FEEDS, 2 COMPLETED SINCE NOON, NOC SHIFT TO COMPLETE ONE MORE IF PT TOLERATES. NO N/V. PT REPORTS FLATUS BUT STILL NO BM BUT IS WILLING TO START BOWEL CARE THIS EVENING.
--- NOTE | 2022-04-24 00:34 | NUR ---
PT STATED THAT SHE DID NOT WANT TO RECEIVE ANOTHER FEEDING TONIGHT VIA PEG TUBE. PT ASKED TO TAKE MOM, BOWEL CARE IN PLACE. PT RESPONDING AND HAS HAD MUILTIPLE BM SO FAR THIS SHIFT.
--- NOTE | 2022-04-24 04:40 | NUR ---
SHIFT SUMMARY: A&OX4. VERY PLEASANT. URESIL IN PLACE, DRAINAGE IS LIGHT BROWN/PINK. PAIN WELL MANAGED T/O THE SHIFT. IND IN ROOM, MINIMAL ASSISTANCE REQUIRED. VOIDING AND HAS REPORTED BM AFTER MOM WAS GIVEN. TOLERATED MEDICATION ADMINISTRATIO BUT REQUESTED TO NOT HAVE ANOTHER FEED DURING THE SHIFT. PT RESTING AT THIS TIME WITH CALL LIGHT IN REACH.
[2022-04-24 05:36] LABS: Albumin, Blood 2.1 g/dL (3.4-5.0); Anion Gap 4 mmol/L (6-16); Blood Urea Nitrogen 10 mg/dL (8-24); Bun/Creatinine Ratio 12.2 (12.0-20.0); CO2, Blood 28 mmol/L (21-32); Calcium, Blood 8.6 mg/dL (8.5-10.1); Chloride, Blood 108 mmol/L (98-108); Creatinine, Blood 0.82 mg/dL (0.40-1.00); Glomerular Filtration Rate 71 (60-); Glucose, Blood 114 mg/dL (70-99); Phosphorus, Blood 1.6 mg/dL (2.5-4.9); Potassium, Blood 3.5 mmol/L (3.5-5.5); Sodium, Blood 140 mmol/L (136-145)
--- NOTE | 2022-04-24 15:17 | NUR ---
SHIFT SUMMARY: POD 3 URACIL PLACEMENT PATIENT IS A&OX4. VS ARE WNL AND IS ON RA. PAIN IS MANAGED WITH IV DILADID. URACIL SITE HAS TEGADERM THAT IS C/D/I WITH LIGHT PINK OUTPUT IN URACIL BAG AND ACCORDIAN IS COMPRESSED. PATIENTS PEG TUBE IS ALSO INTACT AND SHE HAS BEEN HAVING HER FEEDINGS ABOUT TWICE A DAY WHICH IS HER BASELINE AT HOME SHE REPORTED. PATIENT IS INDEP. IN THE ROOM WHEN SHE DOESN'T HAVE IV ABX RUNNING. SHE HAS BEEN HAVING FREQUENT LIQUID STOOLS, BUT DR. CANALES EXPLAINED TO THE PATIENT THAT HER HAVING PEG TUBE FEEDINGS WITH ABX CAN MAKE THAT HAPPEN. SHE CALLS APPROPRIATELY. SHE IS SITTING UP IN A CHAIR WITH CALL LIGHT IN REACH. THE PLAN IS TO RECIEVE THE CULTURE RESULTS FROM MICROBIOLOGY TOMORROW TO DETERMINE IF THE PATIENT WILL NEED TO HAVE IV ABX OR ON ORAL (THAT CAN THEN BE CRUSHED FOR HER PEG TUBE) ABX. PATIENT ALSO STATED "WHEN I DISCHARGE I THINK I WOULD FEEL BETTER GOING TO [facility] OVER GOING HOME SINCE THIS DRAIN IS A LOT AND I WANT TO MAKE SURE I GET MY ANTIBIOTICS SINCE I WILL NEED TO ASK FOR MORE HELP FROM FRIENDS TO HELP GET MY PERSCRIPTIONS FILLED/PICKED UP".
[2022-04-25 05:52] LABS: Albumin, Blood 2.2 g/dL (3.4-5.0); Anion Gap 6 mmol/L (6-16); Blood Urea Nitrogen 11 mg/dL (8-24); Bun/Creatinine Ratio 13.8 (12.0-20.0); CO2, Blood 27 mmol/L (21-32); Calcium, Blood 8.8 mg/dL (8.5-10.1); Chloride, Blood 108 mmol/L (98-108); Glomerular Filtration Rate 74 (60-); Glucose, Blood 116 mg/dL (70-99); Phosphorus, Blood 2.1 mg/dL (2.5-4.9); Potassium, Blood 3.5 mmol/L (3.5-5.5); Sodium, Blood 141 mmol/L (136-145)
--- NOTE | 2022-04-25 06:52 | NUR ---
SUMMARY PT HOPING FOR DISCHARGE TODAY
[2022-04-25] MEDS ORDERED: Norco 5-325 Ta1 EACH PO ×2 (11:43)
[2022-04-25] MEDS ORDERED: LEVO750 PO ×2 (11:46)
[2022-04-25] MEDS ORDERED: METO25 PO ×2 (11:47)
[2022-04-25] MEDS ORDERED: VISBIOME 112.51 EACH PO ×2 (11:54)
--- NOTE | 2022-04-25 12:15 | NUR ---
PT REFUSED FEEDING THIS AM, STATES SHE WANTS TO WAIT UNTIL SHE GETS HOME.
--- NOTE | 2022-04-25 12:43 | NUR ---
DC INSTRUCTIONS GIVEN, VERBALIZED UNDERSTANDING, IV DC'D CATH INTACT, PT DC'D HOME WITH CAREGIVER.
== END 2022-04-25 12:50 | disposition home health service (06) | DRG 392 ==
LOC: ER 13:54 → SURS 15:17
PROVIDERS: Emergency Medicine; Family Medicine; Internal Medicine; ADMIT Internal Medicine
PROC: 0D9E30Z Drainage of Large Intestine with Drainage Device, Percutaneous Approach (ICD-10-PCS; principal; 2022-04-21)
DX: K57.80 Diverticulitis of intestine, part unspecified, with perforation and abscess without bleeding (principal); E87.1 Hypo-osmolality and hyponatremia; Z66 Do not resuscitate; I10 Essential (primary) hypertension; E86.0 Dehydration; K66.8 Other specified disorders of peritoneum; E11.9 Type 2 diabetes mellitus without complications; E87.6 Hypokalemia; K21.9 Gastro-esophageal reflux disease without esophagitis; E78.5 Hyperlipidemia, unspecified; G47.33 Obstructive sleep apnea (adult) (pediatric); E83.39 Other disorders of phosphorus metabolism; I25.2 Old myocardial infarction; Z79.82 Long term (current) use of aspirin; Z79.899 Other long term (current) drug therapy; Z88.1 Allergy status to other antibiotic agents; Z90.49 Acquired absence of other specified parts of digestive tract; Z95.5 Presence of coronary angioplasty implant and graft; Z98.890 Other specified postprocedural states; Z93.1 Gastrostomy status; Z79.4 Long term (current) use of insulin
CPT/HCPCS: 0241U; 36415; 75989; 77012; 80048; 80053; 80069; 82947; 83605; 83690; 85025; 85027; 85610; 85730; 87070; 87075; 87077; 87185; 87186; 87205; 93005; 93010; 94640; 94664; 94760; 96365; 96366; 96375; 97110; 97162; 97165; 97530; 97535; 99285-25; A9270; J0295; J1170; J1650; J2270; J3480; J7030; J7042; J7050; J7120; Q9967

== ENCOUNTER → 2022-04-19 | Outpatient (CLI) | payer MEDICARE ==
[~2022-04-19] MED LIST changes: +BASAGLAR K100 UNIT/1 SC; +DOXY100 PO; +FLUTICASONE-SA1 EA10; +LATANOPROST 0.7.5 M3 BOTHEYES; +LEVO750 PO; +Norco 5-325 Ta1 EACH PO; +Prednisone20 MG PO; +Simvastatin20 MG PO; +VISBIOME 112.51 EACH PO
[2022-04-19 11:41] LABS: Hematocrit 44.2 % (33.0-51.0); Hemoglobin 14.5 g/dL (11.5-16.0); Mean Corpuscular HGB 29.1 pg (26.0-34.0); Mean Corpuscular HGB Conc 32.8 g/dL (31.5-36.5); Mean Corpuscular Volume 89 fL (80-100); Mean Platelet Volume 11.5 fL (9.1-12.4); Platelet Count 185 K/mm3 (150-400); RDW Coefficient Variation 13.9 % (11.7-14.2); RDW Standard Deviation 45.3 fL (35.1-46.3); Red Blood Cell Count 4.98 M/mm3 (3.80-5.20); White Blood Cell Count 22.86 K/mm3 (4.00-11.30)
[2022-04-19 11:49] LABS: Albumin, Blood 2.9 g/dL (3.4-5.0); Albumin/Globulin Ratio 0.7 (0.8-1.8); Bilirubin, Total 0.6 mg/dL (0.1-1.0); Bun/Creatinine Ratio 27.7 (12.0-20.0); Calcium, Blood 9.5 mg/dL (8.5-10.1); Creatinine, Blood 1.01 mg/dL (0.40-1.00); Globulin, Blood 4.1 g/dL (2.2-4.0); Potassium, Blood 4.4 mmol/L (3.5-5.5)
[2022-04-19 12:21] LABS: BAND PERCENT MAN 6 % (0-8); BASOPHILS PERCENT MAN 0 % (0-2); EOSINOPHILS PERCENT MAN 0 % (0-6); LYMPHOCYTES ABSOLUTE MAN 1.37 K/mm3 (0.84-5.20); LYMPHOCYTES PERCENT MAN 6 % (21-46); MONOCYTES ABSOLUTE MAN 0.91 K/mm3 (0.16-1.47); MONOCYTES PERCENT MAN 4 % (4-13); NEUTROPHILS ABSOLUTE MAN 20.57 K/mm3 (1.96-9.15); SEG NEUTROPHILS PERCENT MAN 84 % (41-73); TOTAL CELLS COUNTED 100
== END | disposition home or self-care (01) ==
LOC: LAB 11:32 → LAB SHORT 11:32
PROVIDERS: Physician Assistant
DX: R10.32 Left lower quadrant pain (principal)
CPT/HCPCS: 80053; 85025

== ENCOUNTER 2022-04-29 16:36 | Emergency (ER) | payer MEDICARE, OTHER ==
[~2022-04-29] VITALS: Ht 170.2 cm; Wt 80.3 kg
[~2022-04-29 16:36] MED LIST changes: +BASAGLAR K100 UNIT/1 SC; +LATANOPROST 0.7.5 M3 BOTHEYES; +LEVO750 PO; +Norco 5-325 Ta1 EACH PO; +VISBIOME 112.51 EACH PO
[2022-04-29] MEDS ORDERED: LEVO750 PO (18:10)
[2022-05-04] MEDS ORDERED: FLUTICASONE-SA1 EA10 INH (16:26)
[2022-06-11] MEDS ORDERED: FURO40 PT (15:41)
[2022-06-11] MEDS ORDERED: POTA10T PT (15:42)
[2022-06-11] MEDS ORDERED: DEXTROMETHORPHAN-GUA PT (15:45)
== END 2022-04-29 21:09 | disposition home or self-care (01) ==
LOC: ER 16:36
DX: T85.628A Displacement of other specified internal prosthetic devices, implants and grafts, initial encounter (principal); Z79.890 Hormone replacement therapy; Z79.82 Long term (current) use of aspirin; Z79.899 Other long term (current) drug therapy; Z79.4 Long term (current) use of insulin; Z88.1 Allergy status to other antibiotic agents; Y83.8 Other surgical procedures as the cause of abnormal reaction of the patient, or of later complication, without mention of misadventure at the time of the procedure
CPT/HCPCS: 99282

== ENCOUNTER 2022-05-04 12:19 | Emergency (ER) | payer MEDICARE ==
[~2022-05-04] VITALS: Ht 170.2 cm; Wt 80.3 kg
[2022-05-04 13:59] LABS: BASOPHILS ABSOLUTE AUTO 0.03 K/mm3 (0.00-0.23); BASOPHILS PERCENT AUTO 0 % (0-2); EOSINOPHILS ABSOLUTE AUTO 0.01 K/mm3 (0.00-0.68); EOSINOPHILS PERCENT AUTO 0 % (0-6); Hematocrit 38.6 % (33.0-51.0); Hemoglobin 12.3 g/dL (11.5-16.0); IMMATURE GRAN ABSOLUTE AUTO 0.04 K/mm3 (0.00-0.10); IMMATURE GRAN PERCENT AUTO 0 % (0-1); LYMPHOCYTES ABSOLUTE AUTO 0.93 K/mm3 (0.84-5.20); LYMPHOCYTES PERCENT AUTO 10 % (21-46); MONOCYTES ABSOLUTE AUTO 1.33 K/mm3 (0.16-1.47); MONOCYTES PERCENT AUTO 14 % (4-13); Mean Corpuscular HGB 28.7 pg (26.0-34.0); Mean Corpuscular HGB Conc 31.9 g/dL (31.5-36.5); Mean Corpuscular Volume 90 fL (80-100); Mean Platelet Volume 10.5 fL (9.1-12.4); NEUTROPHILS ABSOLUTE AUTO 7.49 K/mm3 (1.96-9.15); NEUTROPHILS PERCENT AUTO 76 % (41-73); Platelet Count 269 K/mm3 (150-400); RDW Coefficient Variation 14.1 % (11.7-14.2); RDW Standard Deviation 46.6 fL (35.1-46.3); Red Blood Cell Count 4.28 M/mm3 (3.80-5.20); White Blood Cell Count 9.83 K/mm3 (4.00-11.30)
[2022-05-04 14:12] LABS: Albumin, Blood 2.4 g/dL (3.4-5.0); Albumin/Globulin Ratio 0.5 (0.8-1.8); Bilirubin, Total 0.5 mg/dL (0.1-1.0); Calcium, Blood 9.9 mg/dL (8.5-10.1); Creatinine, Blood 1.19 mg/dL (0.40-1.00); Globulin, Blood 4.4 g/dL (2.2-4.0); Potassium, Blood 5.1 mmol/L (3.5-5.5); Total Protein, Blood 6.8 g/dL (6.4-8.2)
[2022-05-04] MEDS ORDERED: Simvastatin20 MG PO (16:25)
[2022-05-04] MEDS ORDERED: FLUTICASONE-SA1 EA10 (16:26)
[2022-05-04] MEDS ORDERED: Prednisone20 MG PO (17:19)
[2022-05-04] MEDS ORDERED: DOXY100 PO (17:19)
== END 2022-05-04 17:43 | disposition home or self-care (01) ==
LOC: ER 12:19
PROVIDERS: Physician Assistant
DX: J45.909 Unspecified asthma, uncomplicated (principal); R05.9 Cough, unspecified; I10 Essential (primary) hypertension; I25.10 Atherosclerotic heart disease of native coronary artery without angina pectoris; K21.9 Gastro-esophageal reflux disease without esophagitis; E78.5 Hyperlipidemia, unspecified; G47.33 Obstructive sleep apnea (adult) (pediatric); I25.2 Old myocardial infarction; Z88.1 Allergy status to other antibiotic agents; Z79.4 Long term (current) use of insulin; Z79.899 Other long term (current) drug therapy; Z87.01 Personal history of pneumonia (recurrent)
CPT/HCPCS: 36415; 71045; 80053; 83880; 84484; 85025; 93005; 93010; A9270; J7512

== ENCOUNTER 2022-05-11 14:04 | Inpatient (IN) | payer MEDICARE ==
[~2022-05-11] VITALS: Ht 170.2 cm; Wt 85.5 kg
[~2022-05-11 14:04] MED LIST changes: +DOXY100 PO; +FLUTICASONE-SA1 EA10 INH; +Prednisone20 MG PO; +Simvastatin20 MG PO
[2022-05-11] MEDS ORDERED: ASPI81CH PO (16:23)
[2022-05-11 16:34] LABS: BASOPHILS ABSOLUTE AUTO 0.05 K/mm3 (0.00-0.23); BASOPHILS PERCENT AUTO 1 % (0-2); EOSINOPHILS ABSOLUTE AUTO 0.03 K/mm3 (0.00-0.68); EOSINOPHILS PERCENT AUTO 0 % (0-6); Hemoglobin 14.5 g/dL (11.5-16.0); IMMATURE GRAN ABSOLUTE AUTO 0.35 K/mm3 (0.00-0.10); IMMATURE GRAN PERCENT AUTO 5 % (0-1); LYMPHOCYTES ABSOLUTE AUTO 1.61 K/mm3 (0.84-5.20); LYMPHOCYTES PERCENT AUTO 21 % (21-46); MONOCYTES ABSOLUTE AUTO 0.79 K/mm3 (0.16-1.47); MONOCYTES PERCENT AUTO 10 % (4-13); Mean Corpuscular HGB 27.6 pg (26.0-34.0); Mean Corpuscular HGB Conc 30.9 g/dL (31.5-36.5); Mean Corpuscular Volume 90 fL (80-100); Mean Platelet Volume 9.7 fL (9.1-12.4); NEUTROPHILS ABSOLUTE AUTO 4.94 K/mm3 (1.96-9.15); NEUTROPHILS PERCENT AUTO 64 % (41-73); Platelet Count 316 K/mm3 (150-400); RDW Coefficient Variation 14.2 % (11.7-14.2); RDW Standard Deviation 46.3 fL (35.1-46.3); Red Blood Cell Count 5.25 M/mm3 (3.80-5.20); White Blood Cell Count 7.77 K/mm3 (4.00-11.30)
[2022-05-11 16:59] LABS: Albumin, Blood 3.1 g/dL (3.4-5.0); Albumin/Globulin Ratio 0.9 (0.8-1.8); Bilirubin, Total 0.5 mg/dL (0.1-1.0); Bun/Creatinine Ratio 26.5 (12.0-20.0); Calcium, Blood 10.6 mg/dL (8.5-10.1); Creatinine, Blood 1.47 mg/dL (0.40-1.00); Globulin, Blood 3.6 g/dL (2.2-4.0); Total Protein, Blood 6.7 g/dL (6.4-8.2)
[2022-05-11 17:05] LABS: Source, Urine Clean Catch
[2022-05-11 17:17] LABS: Appearance, Urine Clear (Clear); Bilirubin, Urine Neg (Neg); Blood, Urine Neg (Neg); Color, Urine Yellow (P-Yellow); Glucose Qualitative, Urine Neg (Neg); Ketones, Urine Neg (Neg); Leukocyte Esterase, Urine Neg (Neg); Nitrite, Urine Neg (Neg); Protein, Urine 1+ (Neg); Urobilinogen, Urine NORM (Normal)
--- NOTE | 2022-05-11 22:22 | NUR ---
ADMIT NOTE 81 YR OLD FEMALE ADMITTED TO FLOOR FROM THE ED WITH DX OF ARF. ALSO HAD RECENT ABD SURGERY (04/20/22) FOR BOWEL PERFORATION AND REPAIR. VOICED SEVERE ABD PAIN AND NAUSEA. ZOFRAN IV ADMIN AND MD NOTIFIED AND ORDERS FOR FENTANYL PRN OBTAINED. IVF OF NS INFUSING. SEE MAR FOR DETAILS WHEN ANALGESICS GIVEN. DROPLET PRECAUTIONS INITIATED FOR ESBL IN THE URINE. CALL LIGHT IN REACH
--- NOTE | 2022-05-12 03:39 | NUR ---
[employer] SUMMARY ADMITTED FOR ARF, WITH PAIN OF ABD. RECENT ABD SURGERY 04-20-22, BOWEL PERFORATION/REPAIR. ALERT AND ORIENTED. PLACED ON ISOLATION FOR ESBL IN THE URINE. NPO. VSS. IVF OF NS INFUSING. HAS RECEIVED ZOFRAN FOR NAUSEA AND FENTANYL FOR PAIN. RESTING QUIETLY WITH FEW INTERRUPTIONS. CALL LIGHT IN REACH. NOTE PEG TUBE OF ABD. WILL CONTINUE TO MONITOR
[2022-05-12 09:16] LABS: BASOPHILS ABSOLUTE AUTO 0.08 K/mm3 (0.00-0.23); BASOPHILS PERCENT AUTO 1 % (0-2); EOSINOPHILS ABSOLUTE AUTO 0.04 K/mm3 (0.00-0.68); EOSINOPHILS PERCENT AUTO 0 % (0-6); Hematocrit 43.6 % (33.0-51.0); IMMATURE GRAN ABSOLUTE AUTO 0.24 K/mm3 (0.00-0.10); IMMATURE GRAN PERCENT AUTO 3 % (0-1); LYMPHOCYTES ABSOLUTE AUTO 1.22 K/mm3 (0.84-5.20); LYMPHOCYTES PERCENT AUTO 13 % (21-46); MONOCYTES ABSOLUTE AUTO 0.73 K/mm3 (0.16-1.47); MONOCYTES PERCENT AUTO 8 % (4-13); Mean Corpuscular HGB 28.5 pg (26.0-34.0); Mean Corpuscular HGB Conc 32.1 g/dL (31.5-36.5); Mean Corpuscular Volume 89 fL (80-100); Mean Platelet Volume 10.2 fL (9.1-12.4); NEUTROPHILS ABSOLUTE AUTO 7.45 K/mm3 (1.96-9.15); NEUTROPHILS PERCENT AUTO 76 % (41-73); Platelet Count 270 K/mm3 (150-400); RDW Coefficient Variation 14.4 % (11.7-14.2); RDW Standard Deviation 46.4 fL (35.1-46.3); Red Blood Cell Count 4.91 M/mm3 (3.80-5.20); White Blood Cell Count 9.76 K/mm3 (4.00-11.30)
[2022-05-12 09:58] LABS: Albumin, Blood 2.5 g/dL (3.4-5.0); Albumin/Globulin Ratio 0.8 (0.8-1.8); Bilirubin, Total 0.4 mg/dL (0.1-1.0); Bun/Creatinine Ratio 27.5 (12.0-20.0); Calcium, Blood 9.3 mg/dL (8.5-10.1); Creatinine, Blood 1.2 mg/dL (0.40-1.00); Globulin, Blood 3.3 g/dL (2.2-4.0); Potassium, Blood 4.1 mmol/L (3.5-5.5); Total Protein, Blood 5.8 g/dL (6.4-8.2)
[2022-05-12 11:23] LABS: C-REACTIVE PROTEIN, EXT RANGE 1.2 mg/dL (0.000-0.300); Magnesium, Blood 1.8 mg/dL (1.6-2.4)
[2022-05-12 11:33] LABS: Thyroid Stimulating Hormone 1.17 uIU/mL (0.360-4.800)
--- NOTE | 2022-05-12 18:00 | NUR ---
SHIFT SUMMARY PATIENT MEDICATED FOR PAIN X1, PATIENT REPORTS SOME NAUSEA BUT REFUSES MEDICATIONS. PATIENT DENIES SHORTNESS OF BREATH. PATIENT IS A SBA WITH A FWW. PATIENT HAS PEG TUBE, MEDICATIONS CRUSHED AND GIVEN WITH WATER, PATIENT TOELRATED WELL. PANTOMIMIST ORDERED TO RESUME TUBE FEEDINGS, PATIENT STATES SHE DOES NOT FEEL READY, IT IS STILL TOO PAINFUL AND SHES HAVING NAUSEA STILL. PANTOMIMIST STATED SHE WOULD FOLLOW UP TOMORROW. PATIENT WORKED WITH PT, SEE NOTE. RECOMMEND HOME WITH HOME HEALTH. PATIENT NPO. PATIENT CBG SLOWLY TRENDING DOWN, AT [address] DORADO NOTIFIED, NEW ORDERS FOR D5 1/2 NS AT 100MLS. PATIENT IS PLEASANT AND COOPERATIVE WITH CARE.
[2022-05-13 06:43] LABS: BASOPHILS ABSOLUTE AUTO 0.04 K/mm3 (0.00-0.23); BASOPHILS PERCENT AUTO 0 % (0-2); EOSINOPHILS ABSOLUTE AUTO 0.13 K/mm3 (0.00-0.68); EOSINOPHILS PERCENT AUTO 1 % (0-6); Hematocrit 36.9 % (33.0-51.0); Hemoglobin 11.7 g/dL (11.5-16.0); IMMATURE GRAN ABSOLUTE AUTO 0.18 K/mm3 (0.00-0.10); IMMATURE GRAN PERCENT AUTO 2 % (0-1); LYMPHOCYTES ABSOLUTE AUTO 1.42 K/mm3 (0.84-5.20); LYMPHOCYTES PERCENT AUTO 15 % (21-46); MONOCYTES PERCENT AUTO 7 % (4-13); Mean Corpuscular HGB 28.1 pg (26.0-34.0); Mean Corpuscular HGB Conc 31.7 g/dL (31.5-36.5); Mean Corpuscular Volume 89 fL (80-100); Mean Platelet Volume 10.4 fL (9.1-12.4); NEUTROPHILS ABSOLUTE AUTO 7.02 K/mm3 (1.96-9.15); NEUTROPHILS PERCENT AUTO 74 % (41-73); Platelet Count 249 K/mm3 (150-400); RDW Coefficient Variation 14.4 % (11.7-14.2); RDW Standard Deviation 46.4 fL (35.1-46.3); Red Blood Cell Count 4.17 M/mm3 (3.80-5.20); White Blood Cell Count 9.49 K/mm3 (4.00-11.30)
[2022-05-13 06:57] LABS: Albumin, Blood 2.1 g/dL (3.4-5.0); Albumin/Globulin Ratio 0.8 (0.8-1.8); Bilirubin, Total 0.7 mg/dL (0.1-1.0); Bun/Creatinine Ratio 22.5 (12.0-20.0); Calcium, Blood 8.7 mg/dL (8.5-10.1); Creatinine, Blood 0.98 mg/dL (0.40-1.00); Globulin, Blood 2.8 g/dL (2.2-4.0); Potassium, Blood 3.5 mmol/L (3.5-5.5); Total Protein, Blood 4.9 g/dL (6.4-8.2)
--- NOTE | 2022-05-13 07:33 | NUR ---
NO ACUTE CHANGES OVERNIGHT. PEG DRESSING CHANGED. MEDICATED FOR ABD PAIN PER ORDERS.
--- NOTE | 2022-05-13 10:00 | NUR ---
DR DORADO AT BEDSIDE. VERBALLY REPORTED PLAN IS TO HOLD TUBE FEEDINGS STILL FOR NOW & OBTAIN ANOTHER CT SCAN.
--- NOTE | 2022-05-13 10:37 | NUR ---
SURGERY CONSULT CALLED IN TO DR ORTIZ'S OFFICE AT 1035, PER ORDERS.
--- NOTE | 2022-05-13 16:58 | NUR ---
SHIFT SUMMARY NO ACUTE CHANGES THIS SHIFT. PATIENT REMAINS TO HAVE ABDOMINAL PAIN IN LOWER ABDOMEN, MEDICATED PER EMAR. NPO T/O SHIFT PER MD'S ORDERS. HAD REPEAT CT SCAN OF ABDOMEN TODAY, AWAITING RESULTS TO DETERMINE PLAN FOR PATIENT. UP TO BSC W/ 1P MINIMAL ASSISTANCE W/GB & FWW. VOIDING WELL, BM TODAY. CALL LIGHT IN REACH, CALLS APPROPRIATELY. WILL REPORT TO ONCOMING RN.
[2022-05-14 05:56] LABS: Hematocrit 38.7 % (33.0-51.0); Hemoglobin 12.4 g/dL (11.5-16.0); Mean Corpuscular HGB 28.4 pg (26.0-34.0); Mean Corpuscular Volume 89 fL (80-100); Mean Platelet Volume 9.8 fL (9.1-12.4); Platelet Count 223 K/mm3 (150-400); RDW Coefficient Variation 14.2 % (11.7-14.2); RDW Standard Deviation 46.4 fL (35.1-46.3); Red Blood Cell Count 4.36 M/mm3 (3.80-5.20); White Blood Cell Count 12.18 K/mm3 (4.00-11.30)
[2022-05-14 06:20] LABS: Albumin/Globulin Ratio 0.7 (0.8-1.8); Bilirubin, Total 0.6 mg/dL (0.1-1.0); Bun/Creatinine Ratio 19.3 (12.0-20.0); Calcium, Blood 8.6 mg/dL (8.5-10.1); Creatinine, Blood 0.83 mg/dL (0.40-1.00); Globulin, Blood 2.9 g/dL (2.2-4.0); Potassium, Blood 3.4 mmol/L (3.5-5.5); Total Protein, Blood 4.9 g/dL (6.4-8.2)
--- NOTE | 2022-05-14 07:52 | NUR ---
Shift Summary A&O x4. VSS. Cooperative with care. Pain 01/18, managed with prn IV 50mcg fentanyl. NPO. Blood glucose check q6h. Meds crushed and given through Peg tube and flushed with 60ml H2O. Peg tube patent and intact. Standby assist to bedside commode.
[2022-05-14 11:34] LABS: Hematocrit 38.8 % (33.0-51.0); Hemoglobin 12.4 g/dL (11.5-16.0); Mean Corpuscular HGB 28.4 pg (26.0-34.0); Mean Corpuscular Volume 89 fL (80-100); Mean Platelet Volume 9.8 fL (9.1-12.4); Platelet Count 235 K/mm3 (150-400); RDW Coefficient Variation 14.1 % (11.7-14.2); Red Blood Cell Count 4.37 M/mm3 (3.80-5.20); White Blood Cell Count 12.59 K/mm3 (4.00-11.30)
--- NOTE | 2022-05-14 18:33 | NUR ---
SHIFT SUMMARY PT A&OX4 AND COOPERATIVE OF CARE. PT C/O ABD PAIN THAT WAS DIFFICULT TO MANAGE IN THE MORNING. EMAR WAS UPDATED AND PT RESPONDED MUCH BETTER TO NEW ORDER FOR DILAUDID. PT DID NOT WANT TO WORK WITH PHYSICAL THERAPY TODAY. WHEN THIS NURSE ASKED IF SHE WOULD BE WILLING TO GET UP TO A RECLINER IF I FOUND HER ONE, SHE STATED, "MAYBE TOMORROW". PT C/O OF BEING TIRED THROUGHOUT DAY AND WANTED TO REST. DOES WELL GETTING UP TO BEDSIDE COMMODE WITH MINIMAL ASSISTANCE. USES CALL LIGHT APPROPRIATELY. BED IN LOWEST POSITION AND CALL LIGHT IN REACH.
[2022-05-15 05:56] LABS: Alanine Aminotransfer (ALT/SGP 10 U/L (12-78); Albumin, Blood 1.9 g/dL (3.4-5.0); Albumin/Globulin Ratio 0.8 (0.8-1.8); Alk Phos 56 U/L (50-136); Anion Gap 5 mmol/L (6-16); Aspartate Aminotrans (AST/SGOT 14 U/L (12-37); Bilirubin, Total 0.3 mg/dL (0.1-1.0); Blood Urea Nitrogen 21 mg/dL (8-24); Bun/Creatinine Ratio 24.7 (12.0-20.0); CO2, Blood 29 mmol/L (21-32); Calcium, Blood 8.1 mg/dL (8.5-10.1); Chloride, Blood 104 mmol/L (98-108); Creatinine, Blood 0.85 mg/dL (0.40-1.00); Globulin, Blood 2.5 g/dL (2.2-4.0); Glomerular Filtration Rate 68 (60-); Glucose, Blood 171 mg/dL (70-99); Magnesium, Blood 1.7 mg/dL (1.6-2.4); Phosphorus, Blood 2.1 mg/dL (2.5-4.9); Potassium, Blood 3.3 mmol/L (3.5-5.5); Sodium, Blood 138 mmol/L (136-145); Total Protein, Blood 4.4 g/dL (6.4-8.2); Triglycerides 172 mg/dL (30-160)
--- NOTE | 2022-05-15 06:44 | NUR ---
Shift Summary Pt recieving IV Inf Clinimex, fat emulsion and ABX. Meds are crushed and put through a PEG tube and then tube is flushed with 60 ML water. Pt c/o severe abdominal pain, rates it 6/10, recieving IV pain medication per EMAR. Pt slept well t/o the night excpet when waking up in pain and requesting Rx. Pt on Q6 BS checks and recieved insulin as ordered. VSS, no acute events, pleasant and cooperative with care.
--- NOTE | 2022-05-15 17:34 | NUR ---
SHIFT SUMMARY NO ACUTE CHANGES DURING SHIFT. PT ALERT AND ORIENTED, CALLS APPROPRIATELY. PT REMAINS ON RA, SPO2 > 92%. PEG TUBE IN PLACE, MEDICATIONS ADMINISTERED THROUGH PEG. CLINIMIX CONTINUED, INFUSING AT 75ML/HR. PT MEDICATED WITH PRN PAIN MEDS X 3 DURING SHIFT. WILL CONTINUE TO MONITOR, CALL LIGHT WITHIN REACH.
--- NOTE | 2022-05-15 20:17 | NUR ---
PT REQUESTS DNR PT WOULD LIKE TO BE DNR, SHE IS AOX4 AND SOUND OF MIND. SHE IS POSSIBLY SUFFERING FROM DEPRESSION D/T THE PASSING OF HER 6 MO AGO. PT ALSO REFUSED ALL MEDICATION TONIGHT EXCEPT PAIN MEDICATION. WILL SPEAK WITH HOSPITALIST ABOUT THIS LATER TONIGHT.
--- NOTE | 2022-05-15 21:15 | NUR ---
patient is refusing vitals being taken, and states that she is on her way out ( dying) and does not feel the need to have them taken anymore. Reported to EMERSON Mcconnell.
--- NOTE | 2022-05-16 00:37 | NUR ---
CODE STATUS CHANGE - DNR Pt is very adament she wants to be DNR. States she has an advanced directive, does not want CPR or intubation or any type of rescusitation. Called Dr. Dorsey who ordered DNR status.
[2022-05-16 05:44] LABS: Hematocrit 33.8 % (33.0-51.0); Hemoglobin 10.9 g/dL (11.5-16.0); Mean Corpuscular HGB 28.6 pg (26.0-34.0); Mean Corpuscular HGB Conc 32.2 g/dL (31.5-36.5); Mean Corpuscular Volume 89 fL (80-100); Mean Platelet Volume 10.7 fL (9.1-12.4); Platelet Count 153 K/mm3 (150-400); RDW Coefficient Variation 14.1 % (11.7-14.2); RDW Standard Deviation 45.9 fL (35.1-46.3); Red Blood Cell Count 3.81 M/mm3 (3.80-5.20); White Blood Cell Count 10.98 K/mm3 (4.00-11.30)
[2022-05-16 06:18] LABS: Alanine Aminotransfer (ALT/SGP 9 U/L (12-78); Albumin, Blood 1.9 g/dL (3.4-5.0); Albumin/Globulin Ratio 0.7 (0.8-1.8); Alk Phos 57 U/L (50-136); Anion Gap 5 mmol/L (6-16); Aspartate Aminotrans (AST/SGOT 15 U/L (12-37); Bilirubin, Total 0.2 mg/dL (0.1-1.0); Blood Urea Nitrogen 32 mg/dL (8-24); Bun/Creatinine Ratio 36.6 (12.0-20.0); CO2, Blood 28 mmol/L (21-32); Calcium, Blood 8.6 mg/dL (8.5-10.1); Chloride, Blood 103 mmol/L (98-108); Creatinine, Blood 0.88 mg/dL (0.40-1.00); Globulin, Blood 2.8 g/dL (2.2-4.0); Glomerular Filtration Rate 66 (60-); Glucose, Blood 257 mg/dL (70-99); Magnesium, Blood 1.9 mg/dL (1.6-2.4); Phosphorus, Blood 2.1 mg/dL (2.5-4.9); Potassium, Blood 3.6 mmol/L (3.5-5.5); Sodium, Blood 136 mmol/L (136-145); Total Protein, Blood 4.7 g/dL (6.4-8.2); Triglycerides 77 mg/dL (30-160)
--- NOTE | 2022-05-16 06:35 | NUR ---
Shift Summary Pt refusing all medications except IV pain medication and IV ABX. Also refused all blood sugar checks and insulin injections. Requested to be put on to DNR status, called Dr. Dorsey who ordered DNR. Purple wristband in place. Fat emulsion and Clinimex infusing t/o the night. PT c/o continued abd pain, requesting PRN IV pain medication more often tonight. Advised about addiction potential, tolerance and withdrawal. Placed on continuous biox per Dr. Dorsey's order d/t risk of resp depression r/t narcotic use. O2 saturation remains >90% on RA.
--- NOTE | 2022-05-16 16:35 | NUR ---
Shift Summary AO, pleasant today. Patient lets this RN knows what meds she wants and doesn't want to take (see EMAR). Dilaudid for 6/10 diffused abdominal pain with good effect. Up in chair for some time today and had multiple visitors. Remains NPO. Able to make needs known. Parenteral nutrition at this time.
--- NOTE | 2022-05-16 17:29 | NUR ---
MALLORY This RN assisted patient to bedside commode. Patient had loose dark/black stool mixed with urine. Spoke with COMMISSIONED SECURITY OFFICER which she had confirmed multiple black loose stools without formation as well. Noticed significant drop in hgb since admitted from 14.5 to 10.9. Discussed with Fiona Kwon for deniseic sample. Orders updated.
[2022-05-17 05:51] LABS: Hematocrit 32.6 % (33.0-51.0); Hemoglobin 10.5 g/dL (11.5-16.0); Mean Corpuscular HGB 28.3 pg (26.0-34.0); Mean Corpuscular HGB Conc 32.2 g/dL (31.5-36.5); Mean Corpuscular Volume 88 fL (80-100); Mean Platelet Volume 11.1 fL (9.1-12.4); Platelet Count 127 K/mm3 (150-400); RDW Coefficient Variation 14.3 % (11.7-14.2); RDW Standard Deviation 46.4 fL (35.1-46.3); Red Blood Cell Count 3.71 M/mm3 (3.80-5.20); White Blood Cell Count 10.91 K/mm3 (4.00-11.30)
[2022-05-17 06:12] LABS: Albumin, Blood 1.9 g/dL (3.4-5.0); Albumin/Globulin Ratio 0.7 (0.8-1.8); Bilirubin, Total 0.2 mg/dL (0.1-1.0); Bun/Creatinine Ratio 43.4 (12.0-20.0); Calcium, Blood 8.8 mg/dL (8.5-10.1); Creatinine, Blood 0.81 mg/dL (0.40-1.00); Globulin, Blood 2.6 g/dL (2.2-4.0); Magnesium, Blood 2.1 mg/dL (1.6-2.4); Phosphorus, Blood 1.3 mg/dL (2.5-4.9); Potassium, Blood 3.9 mmol/L (3.5-5.5); Total Protein, Blood 4.5 g/dL (6.4-8.2)
--- NOTE | 2022-05-17 06:48 | NUR ---
SHIFT SUMMARY: NO ACUTE CHANGES THIS SHIFT, VSS. UP TO THE BSC WIT SBA X1. TOLERATING DIET WELL. PATIENT CONTINUES TO REPORT SLIGHT BURNING AT LABIA IRRITATION SIGHT. BARRIER CREAM WAS APPLIED, PATIENT REPORTED GOOD EFFECT.
--- NOTE | 2022-05-17 07:43 | NUR ---
SHIFT SUMMARY: PATIENT CONTINUES TO REPORT ABD. PAIN 6-8/10, NO NAUSEA. MEDICATED WITH IV DILAUADID PER MAR WITH GOOD EFFECT. UP TO THE BSC WITH AX1 AND FWW. TPN IS INFUSING PER MAR VIA PICC. PATIENT IS REFUSING ALL MEDICATIONS VIA PEG TUB. ABD IS DISTENDED AND BS ARE HYPOACTIVE.
--- NOTE | 2022-05-17 17:39 | NUR ---
SHIFT SUMMARY PT HAS BEEN SLEEPING MOST OF THE DAY. SHE HAS HAD A FEW VISITORS T/O THE DAY. SHE IS REFUSING ANY PEG FEEDINGS SO MEDICATIONS HAVE NOT BEEN ADMINISTERED VIA THE PEG TOO WELL. SHE HAS COMPLAINED OF SOME PAIN AND HAS BEEN MEDICATED TWICE. SHE IS AOX4, COOPERATIVE, AND MAKES HER NEEDS KNOWN.
[2022-05-18 06:20] LABS: Hematocrit 29.3 % (33.0-51.0); Hemoglobin 9.6 g/dL (11.5-16.0); Mean Corpuscular HGB 28.7 pg (26.0-34.0); Mean Corpuscular HGB Conc 32.8 g/dL (31.5-36.5); Mean Corpuscular Volume 88 fL (80-100); Mean Platelet Volume 11.2 fL (9.1-12.4); Platelet Count 134 K/mm3 (150-400); RDW Coefficient Variation 14.5 % (11.7-14.2); RDW Standard Deviation 46.7 fL (35.1-46.3); Red Blood Cell Count 3.34 M/mm3 (3.80-5.20)
[2022-05-18 06:50] LABS: Albumin, Blood 1.7 g/dL (3.4-5.0); Albumin/Globulin Ratio 0.7 (0.8-1.8); Bilirubin, Total 0.2 mg/dL (0.1-1.0); Bun/Creatinine Ratio 47.9 (12.0-20.0); Calcium, Blood 8.8 mg/dL (8.5-10.1); Creatinine, Blood 0.73 mg/dL (0.40-1.00); Globulin, Blood 2.5 g/dL (2.2-4.0); Phosphorus, Blood 1.1 mg/dL (2.5-4.9); Potassium, Blood 4.2 mmol/L (3.5-5.5); Total Protein, Blood 4.2 g/dL (6.4-8.2)
--- NOTE | 2022-05-18 07:52 | NUR ---
SWIFT TENDER SUMMARY: A&Ox4. PLEASANT AND COOPERATIVE WITH CARE. CALLS APPROPRIATELY AND ABLE TO COMMUNICATE NEEDS. REQUESTS PAIN MEDS FAIRLY ROUTINELY Q2H ABD PAIN AND ZOFRAN Q6H. BLOOD GLUCOSE >350 THIS AM REQUIRED INSULIN COVERAGE. PICC RAULITO DIFFICULTY DRAWING AND FLUSHING. LABS DRAWN THIS AM. NO ACUTE EVENTS T/O THE NIGHT. WILL REPORT TO ONCOMING RN.
[2022-05-18 13:54] LABS: Stool Occult Blood Guaiac 1 Pos (Neg)
--- NOTE | 2022-05-18 15:24 | NUR ---
DR DORADO NOTIFIED OF POSITIVE OCCULT STOOL RESULTS. NO ORDERS GIVEN AT THIS TIME.
--- NOTE | 2022-05-18 15:57 | NUR ---
OFFERED TUBE FEEDING TO PT AT NOON AND PT STATED, "MAYBE TOMORROW". OFFERED AGAIN AT 1530 AND PT ASKED IF SHE COULD THINK ABOUT IT. PT STATED SHE WAS WORRIED ABOUT THE PAIN IT WOULD CUASE HER. OFFERED TO TIME THE TUBE FEEDING WITH PAIN MEDICATION AND SHE VERBALIZED THAT SHE WOULD WOULD LIKE TO TALK TO DR DORADO ABOUT IT WHEN SHE SAW HER NEXT. INFORMED PT THAT IF SHE CHANGED HER MIND TO LET ME KNOW. RE-ENFORCED EDUCATION ON THE IMPORTANCE OF NURTRION AND RECOVERY.
--- NOTE | 2022-05-18 17:48 | NUR ---
SHIFT SUMMARY PT A&OX3-4 BUT CONFUSED AT TIMES UPON WAKING. PT QUET AND WITHDRAWN. WHEN ASKED IF SHE WOULD LIKE TO GET UP IN CHAIR, PT RESPONEDED, "MAYBE TOMORROW". PT DECLINED TUBE FEEDINGS WHEN ASEKED AT NOON AND 1530. PT POSSIBLY AGREEABLE TO FEEDING THIS EVENING WITH PAIN MED ADMINISTRATION. PT HAD SEVERAL EPISODES OF LOOSE STOOL. POSITIVE GUAIAC RESULTS. DR ADAMS NOTIFIED AND NO ORDERS GIVEN. SEVERAL VISITORS WERE AT BEDSIDE TODAY. PT CONTINUES TO C/O OF LOWER ABD PAIN. MEDICATED PER EMAR WITH GOOD RESULTS. BED IN LOWEST POSITION AND CALL LIGHT IN REACH.
--- NOTE | 2022-05-19 03:56 | NUR ---
MARKETING DATA SPECIALIST SUMMARY ALERT AND ORIENTED. QUIET, WITHDRAWN. UP TO BEDSIDE COMMODE WITH ASSIST. LARGE LOOSE STOOL - DARK. PARENTERAL NUTRITION IV AT 96 ML/HR. VSS. CONT PULSE OX - 90'S. RECEIVED DILAUDID X 1 OF THIS WRITING FOR LOWER ABD PAIN. VOICED FEELING DROWSY ALL DAY, WANTED TO SPEAK WITH MD IN THE AM RE MEDS. WILL PASS THIS ALONG TO AM RN FOR FOLLOW THROUGH. HAS BEEN RESTING QUIETLY OTHERWISE. CALL LIGHT IN REACH. WILL CONTINUE TO MONITOR
[2022-05-19 06:29] LABS: Hematocrit 35.1 % (33.0-51.0); Hemoglobin 10.5 g/dL (11.5-16.0); Mean Corpuscular HGB 27.6 pg (26.0-34.0); Mean Corpuscular HGB Conc 29.9 g/dL (31.5-36.5); Mean Corpuscular Volume 92 fL (80-100); Mean Platelet Volume 11.5 fL (9.1-12.4); Platelet Count 154 K/mm3 (150-400); RDW Coefficient Variation 14.9 % (11.7-14.2); RDW Standard Deviation 50.4 fL (35.1-46.3); White Blood Cell Count 13.43 K/mm3 (4.00-11.30)
[2022-05-19 07:09] LABS: Bun/Creatinine Ratio 50.2 (12.0-20.0); Calcium, Blood 8.7 mg/dL (8.5-10.1); Creatinine, Blood 0.64 mg/dL (0.40-1.00); Percent Saturation 18.2 % (15.0-50.0); Potassium, Blood 4.5 mmol/L (3.5-5.5); Thyroid Stimulating Hormone 2.24 uIU/mL (0.360-4.800)
--- NOTE | 2022-05-19 18:09 | NUR ---
SUMMARY PT RESTING QUIETLY IN BED, WAKES EASILY, MED PER EMAR FOR PAIN AND NAUSEA TODAY, PT HAD A CT SCAN TODAY, FRIENDS HAVE BEEN IN TO VISIT, PT NISHA A SMALL AMOUNT OF TUBE FEEDS TODAY, UP TO THE COMMODE SEVERAL TIMES, VSS, WILL CONT TO MONITOR
--- NOTE | 2022-05-20 06:13 | NUR ---
SHIFT SUMMARY A&O- PT HAS PPN INFUSING TO LEFT PICC LINE - PEG TUBE FEEDING SCHEDULED DURING THE DAY- FLUSHED PEG TUBE WITHOUT PROBLEMS- PT REFUSED CHG BATH AND REQUESTED IT BE DONE DURING THE DAY- CBG Q6H- PT CBG RUNNING HIGHER AND NEEDING COVERAGE IN THE NIGHT- PT MEDICATED OF THIS NOTE X 1 WITH DILAUDID FOR ABDOMEN PAIN- PT UP TO BSC WITH SBA - PT CALLS APPROPRIATE
[2022-05-20 08:06] LABS: Hematocrit 30.9 % (33.0-51.0); Hemoglobin 9.9 g/dL (11.5-16.0); Mean Corpuscular HGB 28.4 pg (26.0-34.0); Mean Corpuscular Volume 89 fL (80-100); Mean Platelet Volume 11.6 fL (9.1-12.4); Platelet Count 148 K/mm3 (150-400); RDW Coefficient Variation 14.9 % (11.7-14.2); RDW Standard Deviation 48.1 fL (35.1-46.3); Red Blood Cell Count 3.49 M/mm3 (3.80-5.20)
[2022-05-20 08:27] LABS: Albumin, Blood 1.6 g/dL (3.4-5.0); Albumin/Globulin Ratio 0.6 (0.8-1.8); Bilirubin, Total 0.3 mg/dL (0.1-1.0); Bun/Creatinine Ratio 49.8 (12.0-20.0); C-REACTIVE PROTEIN, EXT RANGE 2.11 mg/dL (0.000-0.300); Calcium, Blood 8.5 mg/dL (8.5-10.1); Creatinine, Blood 0.64 mg/dL (0.40-1.00); Globulin, Blood 2.8 g/dL (2.2-4.0); Magnesium, Blood 1.9 mg/dL (1.6-2.4); Phosphorus, Blood 2.4 mg/dL (2.5-4.9); Potassium, Blood 4.5 mmol/L (3.5-5.5); Total Protein, Blood 4.4 g/dL (6.4-8.2)
--- NOTE | 2022-05-20 16:58 | NUR ---
Initial palliative care consult: Diann is a 81 year old lady with a recent history of a perforated sigmoid colon in April of 2022. She was hospitalized for surgery and treatment of an abcess in mid April. She was discharged home on 04/24/22 and was readmitted on 05/11/22 for N/V/D and ARF. She also has a history of aspirtation pneumonia, chronic PEG tube with feedings since 2019, sepsis, Zenker diverticulum, GERD, HLD, sleep apnea, CO and borderdline DM. She is . She has one daughter who lives in [place] who she is not close with. PC visit requested by mixer diamond powder and PT to restablish a rapport and to assist with symptom management and advanced care planning. Reviewed PT notes from today, pt declined to work with PT today. She has declined working with PT on several occasions. Diann is weak. She is sitting up in the bedside chair during the visit. She complains of lower abd pain 3/10 during the visit. She was medicated with IV dilaudid about an hour prior to the visit. She reports that her biggest concern is the pain. She states that if the pain could be less she feels that she would be more likely to participate in working with therapy. Discussed pain medication options and timing of medications for therapy. Also discussed that lack of mobility adds to the weakness and generalized discomfort. Diann reports that she doesn't want to change any of her pain medications. She states that she doesn't want to sleep more than she already is. Discussed options for journaling her pain levels before and after receiving medications to see if there is a pattern. She is agreeable to this. Diann states that she feels she is not depressed. She states that she has "worked through" losing her of 59 years. He after a short illness about 6 months ago. "He went through a lot." She states that the doctor started her on a medication for depression, however she doesn't like that it makes her sleepy. Diann reports that she took a full can of TF today with free water and felt that "It was a little too much." No nausea but states she felt uncomfortable. She is still having some diarrhea. At home she takes 3 total cans of TF per day with free water (she was unsure of the amount.) She reports that the doctor told her today that things were improving on her CT scan. Asked Diann to verbalize her goals. Her first goal is to have the pain managed. Her second goal is to go live at home, to be able to garden and play the piano and go out on social gatherings with her mandaeism family. Discussed ways of acheiving her goals. Emotional support given. Attempted to motivate her to participate in care. PC to continue to follow for syptom management, advanced care planning and support.
--- NOTE | 2022-05-20 18:18 | NUR ---
SHIFT SUMMARY PATIENT MEDICATED X4 FOR PAIN, PATIENT DENIES NAUSEA AND SHORTNESS OF BREATH. PATIENT IS A SBA TO THE [facility] [place]. PATIENT IS NPO. PATIENT HAS TPN RUNNING AT 94MLS/HR. PATIENT HAD CHLORAHEXIDINE BATH TODAY DUE TO PICC LINE. DRESSING CHANGED TO PICC LINE, IT DOES DRAW. ITS POSITIONAL. PATIENT REFUSED TO WORK WITH PHYSICAL THERAPY TODAY. PATIENT DID TOLERATE MEDICATIONS AND ONE CARTON OF TUBE FEEDING TODAY, WELL 500MLS OF WATER. PATIENT HAD MANY VISITORS TODAY. PATIENT UP IN CHAIR FOR SOME OF THIS SHIFT. PATIENT SLEPT ON AND OFF. PATIENT IS PLEASANT AND COOPERATIVE WITH CARE.
--- NOTE | 2022-05-21 04:36 | NUR ---
SHIFT MOSTLY UNREMARKABLE. PATIENT VOIDED IN BEDSIDE COMMODE TWICE THROUGHOUT NIGHT, 1 PERSON STANDBY ASSIST. PAIN WELL MANAGED WITH INTERMITTED DILAUDID PER EMAR. PATIENT DECLINED 2100 DOSE OF REMERON. SHIFT OTHERWISE NOT NOTEWORTHY. CALL LIGHT LEFT WITHIN REACH.
--- NOTE | 2022-05-21 15:38 | NUR ---
CHLORHEXIDINE BATH: PT REFUSED CHLORHEXIDINE BATH. SHE STATED SHE WOULD GET ONE TOMORROW.
--- NOTE | 2022-05-21 18:46 | NUR ---
SHIFT SUMMARY: PATIENT ALERT AND ORIENTED X4. SHE IS PLEASANT AND COOPERATIVE WITH ALL CARE PROVIDED TO HER. SHE REFUSED A CHLORHEXIDINE BATH BUT STATED SHE WOULD HAVE ONE TOMORROW. IV DILAUDID WAS PROVIDED TO HER 4X THROUGHOUT THE SHIFT. GREEN HIDE INSPECTOR STATED SHE WOULD BE LOOKING INTO ALTERNATIVE PAIN MEDICATIONS. SHE RECIEVED 2 CARTONS OF FOOD THROUGH HER PEG TUBE AND WAS WELL TOLERATED. HER BLOOD SUGARS TRENDED UP THROUGHOUT THE DAY AND WAS GIVEN LONG ACTING WELL REGULAR GLUCOSE FOR COVERAGE. INTRAVENOUS THERAPY NURSE CONSULTED WITH THE PATIENT AND TALKED ABOUT AN ALTERNATIVE FOR FEEDINGS THAT WILL BE ADDRESSED FURTHER TOMORROW. PATIENT RESTING COMFORTABLE IN BED WITH ANTIBIOTIC AND TPN RUNNING. CALL LIGHT IN REACH AND BED IN LOWEST POSITION.
--- NOTE | 2022-05-22 01:25 | NUR ---
REPORT RECIEVED FROM AMNOL RADIO ELECTRONICS TECHNICIAN AT 0120 AND AWAITING PT T/F TO ROOM 331.
--- NOTE | 2022-05-22 03:24 | NUR ---
PT T/F TO ROOM 331 VIA W/C AT 0132. SHE WAS ORIENTED TO NEW ROOM AND CALL SYSTEM. THIS RN AGREES TO PREVIOUS RN'S SHIFT ASSESSMENT FINDINGS.
--- NOTE | 2022-05-22 04:14 | NUR ---
SUMMARY: PT A/OX4, CALLS APPROPRIATELY TO SPECIFY NEEDS AND IS PLEASANT AND COOPERATIVE W/CARE. SHE'S UP TO BSC/CHAIR W/FWW AND SBA AND ATTENDS CHANGED PRN FOR URGE INCONTINENCE. PT REMAINS NPO W/TPN INFUSING VIA DAVY PICC AND BID BOLUS FEEDS ARE BEING RECIEVED PER PEG TUBE TOLERATED. Q6H CBG MONITORING PERFORMED AND INSULIN COVERAGE WAS REQUIRED AND RECIEVED PER EMAR. SHE CONT'S TO REPORT INTERMITTENT ABDO PAIN W/1MG IV DILUADID RECIEVED PRN X3 DOSES FOR TOLERABLE EFFECT. IV ABX PROVIDED AND PT CONT'S TO REFUSE REMERON W/DENIAL OF DEPRESSION OR NEED. NO ACUTE CHANGES, VSS/AFEBRILE. WCTM AND REPORT TO DAY RN.
--- NOTE | 2022-05-22 06:38 | NUR ---
CBG THAT WAS OVER 500 THIS AM WAS DRAWN FROM THE PICC LINE ERRONOUSLY W/TPN STILL RUNNING. REPEAT POC TESTING CBG WAS 298 AND AM LABS WERE REDRAWN FROM HER LINE W/RESULTS PENDING.
[2022-05-22 07:28] LABS: Hematocrit 28.2 % (33.0-51.0); Hemoglobin 9.2 g/dL (11.5-16.0); Mean Corpuscular HGB 28.9 pg (26.0-34.0); Mean Corpuscular HGB Conc 32.6 g/dL (31.5-36.5); Mean Corpuscular Volume 89 fL (80-100); Mean Platelet Volume 12.4 fL (9.1-12.4); Platelet Count 161 K/mm3 (150-400); RDW Coefficient Variation 15.2 % (11.7-14.2); RDW Standard Deviation 49.4 fL (35.1-46.3); Red Blood Cell Count 3.18 M/mm3 (3.80-5.20); White Blood Cell Count 9.27 K/mm3 (4.00-11.30)
[2022-05-22 07:48] LABS: Alanine Aminotransfer (ALT/SGP 10 U/L (12-78); Albumin, Blood 1.7 g/dL (3.4-5.0); Albumin/Globulin Ratio 0.6 (0.8-1.8); Alk Phos 52 U/L (50-136); Anion Gap 4 mmol/L (6-16); Aspartate Aminotrans (AST/SGOT 12 U/L (12-37); Bilirubin, Total 0.4 mg/dL (0.1-1.0); Blood Urea Nitrogen 34 mg/dL (8-24); Bun/Creatinine Ratio 50.1 (12.0-20.0); CO2, Blood 26 mmol/L (21-32); Calcium, Blood 8.7 mg/dL (8.5-10.1); Chloride, Blood 106 mmol/L (98-108); Creatinine, Blood 0.68 mg/dL (0.40-1.00); Globulin, Blood 2.8 g/dL (2.2-4.0); Glomerular Filtration Rate 87 (60-); Glucose, Blood 330 mg/dL (70-99); Magnesium, Blood 2.1 mg/dL (1.6-2.4); Potassium, Blood 4.9 mmol/L (3.5-5.5); Sodium, Blood 136 mmol/L (136-145); Total Protein, Blood 4.5 g/dL (6.4-8.2); Triglycerides 165 mg/dL (30-160)
--- NOTE | 2022-05-22 18:42 | NUR ---
PATIENT FEELING PAINFUL IN THE LOWER ABDOMEN ALL SHIFT. IV DILAUDED IS EFFECTIVE. PATIENT SLEEPS COMFORTABLY AFTER ADMINISTRATION. PATIENT HAS PEG TUBE AND RECEIVES ORAL MEDICATIONS CRUSHED AND DILUTED THRHOUGH THE TUBE. PATIENT HAS TPN RUNNING AND IS TOLERATING. EDEMA IS BODY WIDE- RIGHT ARM IS LARGER THAN LEFT. LE ARE +3 PITTING, AND FEET ARE +4 PITTING. PATIENTS LUNG ON LEFT WAS CRACKLEY THIS AM, RIGHT SIDE MORE DIMINISHED. SHE APPEARS TO BE ORIENTATED AND VISITED WITH COMPANY [employer]RIE[employer] THIS EVENING. BLOOD SUGARS HIGH AND COVERED WITH INSULIN. IV ABX IN PLACE.
--- NOTE | 2022-05-23 05:03 | NUR ---
Patient resting comfortably in bed, prn medications given for pain.
[2022-05-23 08:42] LABS: Albumin, Blood 1.5 g/dL (3.4-5.0); Anion Gap 5 mmol/L (6-16); Blood Urea Nitrogen 30 mg/dL (8-24); Bun/Creatinine Ratio 45.2 (12.0-20.0); CO2, Blood 24 mmol/L (21-32); Chloride, Blood 107 mmol/L (98-108); Creatinine, Blood 0.66 mg/dL (0.40-1.00); Glomerular Filtration Rate 88 (60-); Glucose, Blood 376 mg/dL (70-99); Sodium, Blood 136 mmol/L (136-145); Triglycerides 156 mg/dL (30-160)
--- NOTE | 2022-05-23 18:07 | NUR ---
SHIFT SUMMARY PT WAS ABLE TO TOLERATE ONE TUBE FEEDING OF THE NUTREN AND JEVITY, PLUS FLUSHING PER ORDERS. PT TOLERATED 500ML FLUSH. PT DEVELOPED LOOSE STOOLS, AND WE HELD THE 2ND TUBE FEEDING BOLUS. DENIED NAUSEA OR VOMITING. TPN INFUSING INTO PICC AT 94ML/HR. PEG TUBE FLUSHED WELL, RECEIVED MEDS CRUSHED WITH A 60ML FLUSH AFTERWARDS. PT WITH WET PRODUCTIVE COUGH. LUNGS CLEAR. A&O X4. URINARY URGENCY. WILL CALL FOR ASSISTANCE.
--- NOTE | 2022-05-24 05:29 | NUR ---
shift summary PT IS STILL REQUIRING FREQUENT PAIN MEDS. STATES "THEY DON'TWORK FOR VERY LONG AND THEN MY CRAMPING COMES BACK." SHE IS STILL HAVING LIQUID STOOLS OVER NIGHT. NO N/V, BUT STILL HEAVY CRAMPING AND RADIATING PAIN. BED IN LOWEST POSITION AND CALL LIGHT IN REACH.
[2022-05-24 06:03] LABS: Albumin, Blood 1.6 g/dL (3.4-5.0); Anion Gap 5 mmol/L (6-16); Blood Urea Nitrogen 30 mg/dL (8-24); Bun/Creatinine Ratio 48.1 (12.0-20.0); CO2, Blood 24 mmol/L (21-32); Calcium, Blood 8.5 mg/dL (8.5-10.1); Chloride, Blood 106 mmol/L (98-108); Creatinine, Blood 0.62 mg/dL (0.40-1.00); Glomerular Filtration Rate 89 (60-); Glucose, Blood 301 mg/dL (70-99); Phosphorus, Blood 2.2 mg/dL (2.5-4.9); Potassium, Blood 4.6 mmol/L (3.5-5.5); Sodium, Blood 135 mmol/L (136-145)
--- NOTE | 2022-05-24 11:19 | NUR ---
VERBAL CONSULT WITH DR. DANG WHILE ROUNDING, PT HAS HAD TWO LOOSE STOOLS THIS MORNING, SO PT WANTED TO HOLD THE PEG TUBE FEEDINGS. PT STATES THAT SHE ROUTINELY HAS LOOSE STOOLS AT HOME AFTER HER PEG TUBE FEEDINGS, BUT THAT THESE STOOLS ARE MORE FREQUENT, MORE WATERY AND LARGER. BOTH OF THE STOOLS THIS AM OCCURRED BEFORE ANY TUBE FEED GIVEN. DR. DANG WITH ORDERS TO CONSULT WITH DIETITIAN FOR RECOMMENDATIONS.
--- NOTE | 2022-05-24 18:34 | NUR ---
SHIFT SUMMARY PT RECEIVED NO TPN FEEDINGS DUE TO LOOSE STOOLS. RN CALLED AND LEFT TWO VOICEMAILS FOR DIETARY, PER DIETARY CONSULT WRITTEN BY DR. DANG. RECEIVING TPN NUTRITION 94ML/HR. CHG BATH OF LEFT ARM, LEFT FLANK PERFORMED FOR PICC LINE. CHANGED CAPS ON PICC LINE. PT IS A 1 PERSON ASSIST TO BSC WITH WALKER. IV LASIX ADDED TO EMAR DUE TO BLE EDEMA. LIMBS ELEVATED ON PILLOW. OPENED BLISTER ON RIGHT GLUTEAL CLEFT COVERED WITH MEPILEX. ROOM AIR. a & O X4.
[2022-05-25 06:07] LABS: Hematocrit 26.8 % (33.0-51.0); Hemoglobin 8.5 g/dL (11.5-16.0); Mean Corpuscular HGB 28.2 pg (26.0-34.0); Mean Corpuscular HGB Conc 31.7 g/dL (31.5-36.5); Mean Corpuscular Volume 89 fL (80-100); Mean Platelet Volume 12.1 fL (9.1-12.4); Platelet Count 187 K/mm3 (150-400); RDW Coefficient Variation 15.3 % (11.7-14.2); RDW Standard Deviation 49.5 fL (35.1-46.3); Red Blood Cell Count 3.01 M/mm3 (3.80-5.20); White Blood Cell Count 5.51 K/mm3 (4.00-11.30)
[2022-05-25 06:23] LABS: Albumin, Blood 1.6 g/dL (3.4-5.0); Anion Gap 4 mmol/L (6-16); Blood Urea Nitrogen 29 mg/dL (8-24); Bun/Creatinine Ratio 44.5 (12.0-20.0); CO2, Blood 28 mmol/L (21-32); Calcium, Blood 8.7 mg/dL (8.5-10.1); Chloride, Blood 106 mmol/L (98-108); Creatinine, Blood 0.65 mg/dL (0.40-1.00); Glomerular Filtration Rate 87 (60-); Glucose, Blood 267 mg/dL (70-99); Phosphorus, Blood 3.3 mg/dL (2.5-4.9); Potassium, Blood 4.5 mmol/L (3.5-5.5); Sodium, Blood 138 mmol/L (136-145)
--- NOTE | 2022-05-25 07:59 | NUR ---
SHIFT SUMMARY; PT WITH NO ACUTE CHANGES OVERNIGHT. TPN IS RUNNING, A PUREWICK IS IN PLACE PER PT REQUEST. THE PT REQUESTED PAIN MEDS TWICE THROUGHOUT THE SHIFT FOR ABDOMINAL PAIN. THE PT DENIES ANY SOB. THE PLAN IS FOR THE PT TO DC TO [facility] ONCE SHE CAN TOLERATE 2 FEEDINGS THROUGH HER PEG TUBE FOR 3 CONSECUTIVE DAYS. CURRENTLY THE PT IS RESTING IN BED WITH THE BED IN THE LOWEST POSITION AND THE CALL LIGHT AT BEDSIDE.
--- NOTE | 2022-05-25 18:15 | NUR ---
SHIFT SUMMARY PT HAS BEEN COOPERATIVE AND PLEASANT THIS SHIFT. SHE HAS FOLLOWED DIRECTIONS WELL AND WORKED WITH PT. SHE HAS BEEN SLEEPING OFF AN ON THIS SHIFT, WAKING FOR MEDS AND OTHER INTERVENTIONS. SHE HAD A MEPALEX PLACED ON HER HEALING COCCYX WOUND TODAY.
[2022-05-26 06:26] LABS: Albumin, Blood 1.7 g/dL (3.4-5.0); Anion Gap 6 mmol/L (6-16); Blood Urea Nitrogen 33 mg/dL (8-24); CO2, Blood 27 mmol/L (21-32); Calcium, Blood 8.7 mg/dL (8.5-10.1); Chloride, Blood 106 mmol/L (98-108); Glomerular Filtration Rate 73 (60-); Glucose, Blood 228 mg/dL (70-99); Phosphorus, Blood 2.7 mg/dL (2.5-4.9); Potassium, Blood 4.7 mmol/L (3.5-5.5); Sodium, Blood 139 mmol/L (136-145)
--- NOTE | 2022-05-26 06:48 | NUR ---
A/OX4; CALM AND COOPERATIVE. 1X ASSIST WITH WALKER TO BSC. C/O ABD PAIN AT -02/18; PRN NORCO GIVEN 2X THIS SHIFT; SOMEWHAT HELPFUL PER PATIENT (10/19 AT LAST REASSESSMENT). PEG TUBE PATENT; DRSG CDI. BED ALARM SET. CALL LIGHT IN REACH; ENCOURAGED TO MAKE NEEDS KNOWN
--- NOTE | 2022-05-26 17:20 | NUR ---
SHIFT SUMMARY PT HAS BEEN PLEASANT THIS SHIFT. SHE HAS C/O PAIN AND HAS BEEN MEDICATED PER THE EMAR. HER PEG TUBE IS PATENT AND THE DRESSING IS C/D/I. SHE IS CURRENTLY FINISHING HER LAST BAG OF TPN AND THEN THE ORDER IS TO D/C. SHE IS NOW RESTING WITH THE CALL LIGHT WITHIN REACH AND BED IN ITS LOWEST POSITION.
[2022-05-27 05:08] LABS: Hemoglobin 9.2 g/dL (11.5-16.0); Mean Corpuscular HGB 27.7 pg (26.0-34.0); Mean Corpuscular HGB Conc 30.7 g/dL (31.5-36.5); Mean Corpuscular Volume 90 fL (80-100); Mean Platelet Volume 11.3 fL (9.1-12.4); Platelet Count 250 K/mm3 (150-400); RDW Coefficient Variation 15.6 % (11.7-14.2); RDW Standard Deviation 50.9 fL (35.1-46.3); Red Blood Cell Count 3.32 M/mm3 (3.80-5.20); White Blood Cell Count 6.98 K/mm3 (4.00-11.30)
--- NOTE | 2022-05-27 05:27 | NUR ---
CASTING SORTER SUMMARY: A&Ox4. PLEASANT AND COOPERATIVE WITH CARE. UTILIZES CALL LIGHT APPROPRIATELY AND COMMUNICATES NEEDS EFFECTIVELY. DECLINED OFFER OF PAIN MED. ABLE TO TOLERATE HALF OF HER FLUSH AND [employer]. LABS DRAWN THIS MORNING PER INSTRUMENT PANEL ASSEMBLER PICC UNABLE TO DRAW. TPNS COMPLETED LAST NIGHT. VSS T/O THE SHIFT. SMALL BM NOTED THIS AM. POTENTIAL DC HOME TODAY. WILL REPORT TO ONCOMING RN.
[2022-05-27 05:49] LABS: Albumin, Blood 1.9 g/dL (3.4-5.0); Anion Gap 6 mmol/L (6-16); Blood Urea Nitrogen 33 mg/dL (8-24); Bun/Creatinine Ratio 39.2 (12.0-20.0); CO2, Blood 27 mmol/L (21-32); Calcium, Blood 9.1 mg/dL (8.5-10.1); Chloride, Blood 106 mmol/L (98-108); Creatinine, Blood 0.84 mg/dL (0.40-1.00); Glomerular Filtration Rate 69 (60-); Glucose, Blood 109 mg/dL (70-99); Phosphorus, Blood 2.9 mg/dL (2.5-4.9); Potassium, Blood 4.5 mmol/L (3.5-5.5); Sodium, Blood 139 mmol/L (136-145)
[2022-05-27] MEDS ORDERED: BANATROL PLUS1 EAC1 PO (11:24)
[2022-05-27] MEDS ORDERED: Norco 10-325 T1 EACH PO (11:26)
[2022-05-27] MEDS ORDERED: Promod946 ML PO (11:27)
[2022-05-27] MEDS ORDERED: MIRALAX17 GM PO (11:28)
--- NOTE | 2022-05-27 13:59 | NUR ---
DISCHARGE NOTE PT DISCHARGED HOME WITH HOME HEALTH VIA CAREGIVER. TRANSPORTED TO THE VEHICLE USING A WHEELCHAIR. PICC LINE REMOVED BY THE CHARGE NURSE. EDUCATION WAS PROVIDED AND MEDICATIONS FAXED TO DESIRED PHARMACY. INFOMRED PT ABOUT F/U APPOINTMENTS AND CONTACT INFORMATION.
== END 2022-05-27 13:16 | disposition home health service (06) | DRG 682 ==
LOC: ER 14:04 → MEDS 18:27
PROVIDERS: Internal Medicine; Student in an Organized Health Care Education/Training Program; ADMIT Internal Medicine
PROC: 02HV33Z Insertion of Infusion Device into Superior Vena Cava, Percutaneous Approach (ICD-10-PCS; principal; 2022-05-20)
DX: N17.9 Acute kidney failure, unspecified (principal); E43 Unspecified severe protein-calorie malnutrition; E87.1 Hypo-osmolality and hyponatremia; K63.2 Fistula of intestine; K57.20 Diverticulitis of large intestine with perforation and abscess without bleeding; Z66 Do not resuscitate; I10 Essential (primary) hypertension; I25.10 Atherosclerotic heart disease of native coronary artery without angina pectoris; K21.9 Gastro-esophageal reflux disease without esophagitis; E78.5 Hyperlipidemia, unspecified; E11.9 Type 2 diabetes mellitus without complications; G47.33 Obstructive sleep apnea (adult) (pediatric); J45.909 Unspecified asthma, uncomplicated; G47.00 Insomnia, unspecified; F32.A Depression, unspecified; D63.8 Anemia in other chronic diseases classified elsewhere; R05.9 Cough, unspecified; E83.39 Other disorders of phosphorus metabolism; E87.6 Hypokalemia; R13.10 Dysphagia, unspecified; E87.70 Fluid overload, unspecified; E86.0 Dehydration; Z68.27 Body mass index [BMI] 27.0-27.9, adult; I25.2 Old myocardial infarction; Z90.49 Acquired absence of other specified parts of digestive tract; Z98.890 Other specified postprocedural states; Z88.1 Allergy status to other antibiotic agents; Z79.4 Long term (current) use of insulin; Z79.82 Long term (current) use of aspirin; Z79.899 Other long term (current) drug therapy
CPT/HCPCS: 36415; 36569; 71045; 74177; 80048; 80053; 80069; 82270; 82607; 82728; 82746; 82947; 83540; 83550; 83690; 83735; 83880; 84100; 84145; 84443; 84478; 84484; 85025; 85027; 85651; 86140; 93005; 93010; 94640; 94664; 94760; 94762; 96365-59; 96367; 96375; 97110; 97116; 97162; 97530; 99285-25; A9270; C1751; J0610; J0744; J1170; J1650; J1815; J1940; J1956; J2405; J3010; J3411; J3475; J7030; J7042; J7050; J7060; J7120; J7131; Q9967